=== PATIENT | male | born 1955 | race Caucasian/White ===

== ENCOUNTER 2021-01-09 09:29 | Outpatient (REF) | payer OTHER, SELFPAY ==
[2021-01-09 11:45] LABS: Alanine Aminotransferase 35 U/L (0-40); Albumin Level 4.2 g/dL (3.5-5.0); Alkaline Phosphatase 74 U/L (39-117); Anion Gap 12 (12-20); Aspartate Amino Transferase 24 U/L (5-37); Bilirubin Total 0.6 mg/dL (0.0-1.0); Blood Urea Nitrogen 18 mg/dL (9-16); Calcium 9.4 mg/dL (8.4-10.2); Carbon Dioxide 31 mmol/L (22-29); Chloride 103 mmol/L (96-108); Cholesterol 148 mg/dL; Estimated Glomerular Filt Rate > 60; Glucose Fasting 94 mg/dL (60-99); HDL Cholesterol 56 mg/dL; LDL Cholesterol Calculated 70 mg/dl; Potassium 4.5 mmol/L (3.3-5.1); Sodium 141 mmol/L (135-145); Total Protein 6.8 g/dL (6.5-8.0); Triglycerides 112 mg/dL
[2021-01-09 12:10] LABS: Prostate Specific Antigen Scr 2.22 ng/mL (<0.05-4.0); TSH reflex Free T4 2.76 uIU/mL (0.32-4.0)
== END 2021-01-09 09:30 | disposition home or self-care (01) ==
LOC: HO.HMGCLDS 09:29
PROVIDERS: PCP Nurse Practitioner Family; Visit Provider Nurse Practitioner Family
DX: Z00.00 Encounter for general adult medical examination without abnormal findings (principal); Z12.5 Encounter for screening for malignant neoplasm of prostate
CPT/HCPCS: 36415; 80053; 80061; 84153; 84443

== ENCOUNTER 2023-05-26 08:16 | Outpatient (REF) | payer MEDICARE, SELFPAY ==
[2023-05-26 11:27] LABS: MANUAL DIFF FLAG NO
[2023-05-26 11:35] LABS: Appearance Urine Clear; Color Urine Yellow; Glucose Urine UA Negative (Negative); Leukocyte Esterase Urine Negative (Negative); Nitrite Urine Negative (Negative); PH 5.5 (5.0-9.0); Urine Blood Negative (Negative); Urine Ketones Negative (Negative); Urine Protein Negative (Neg-Trace)
[2023-05-26 11:36] LABS: Basophils Absolute Auto 0.1 X10*3/uL (0.0-0.2); Basophils Percent Auto 1.4 % (0-2); Eosinophils Absolute Auto 0.1 X10*3/uL (0.0-0.4); Eosinophils Percent Auto 1.2 % (0-4); Hematocrit 44.3 % (42.0-52.0); Hemoglobin 14.5 g/dl (14.0-18.0); Imm Gran Abs Auto 0.01 X10*3/uL (0.00-0.03); Imm Gran Pct Auto 0.2 % (0.0-0.4); Lymphocytes Absolute Auto 1.2 X10*3/uL (1.2-4.9); Lymphocytes Percent Auto 28.6 % (20-40); Mean Corpuscular HGB Conc 32.7 g/dl (31.0-36.0); Mean Corpuscular Hemoglobin 31.2 pg (27.0-33.0); Mean Corpuscular Volume 95.3 fL (80.0-98.0); Mean Platelet Volume 10.4 fL (9.4-12.4); Monocytes Absolute Auto 0.4 X10*3/uL (0.1-1.2); Neutrophils Absolute Auto 2.5 x10*3/uL (2.0-8.3); Neutrophils Percent Auto 58.6 % (45-73); Platelet Count 292 X10*3/uL (160-400); Red Blood Count 4.65 X10*6/uL (4.60-5.80); White Blood Count 4.3 X10*3/uL (4.8-10.8)
[2023-05-26 12:05] LABS: Alanine Aminotransferase 29 U/L (0-40); Alkaline Phosphatase 74 U/L (39-117); Anion Gap 13 (12-20); Aspartate Amino Transferase 23 U/L (5-37); Bilirubin Total 0.8 mg/dL (0.0-1.0); Blood Urea Nitrogen 20 mg/dL (9-16); Calcium 9.6 mg/dL (8.4-10.2); Carbon Dioxide 24 mmol/L (22-29); Chloride 107 mmol/L (96-108); Cholesterol 138 mg/dL; Estimated Glomerular Filt Rate > 60; Glucose Fasting 111 mg/dL (60-99); HDL Cholesterol 57 mg/dL; LDL Cholesterol Calculated 68 mg/dl; Potassium 4.4 mmol/L (3.3-5.1); Sodium 140 mmol/L (135-145); Total Protein 6.8 g/dL (6.5-8.0); Triglycerides 66 mg/dL
[2023-05-26 12:21] LABS: Prostate Specific Antigen Scr 3.34 ng/mL (<0.05-4.0)
[2023-05-26 12:29] LABS: TSH reflex Free T4 2.86 uIU/mL (0.32-4.0)
== END 2023-05-26 08:17 | disposition home or self-care (01) ==
LOC: HO.HMGCLDS 08:16
PROVIDERS: PCP Nurse Practitioner Family; Visit Provider Nurse Practitioner Family
DX: Z12.5 Encounter for screening for malignant neoplasm of prostate (principal); E78.5 Hyperlipidemia, unspecified
CPT/HCPCS: 36415; 80053; 80061; 81003; 84153; 84443; 85025

== ENCOUNTER 2023-06-10 11:28 | Outpatient (AMB) | payer MEDICARE, SELFPAY ==
--- NOTE | 2023-06-10 11:36 | MHC.PC.OV ---
Vital Signs 06/10/23 11:37 Height 5 ft 10 in Weight 211 lb 4 oz BMI 30.3 BP 124/80 Blood Pressure Location Rt brachial Position Sitting Pulse 62 Pulse Source Pulse Oximeter Pulse Oximetry (%) 96 Oxygen Delivery Method Room Air Intake Visit Reasons: Follow up Allergies cats Allergy (Unknown, Uncoded 06/10/23 11:39) Unknown Medication List - Last Reconciled 06/10/23 by GWEN Nguyen atorvastatin 80 mg PO DAILY 90 days Tobacco use date assessed: 06/10/23 Fall risk assessment: No Falls in past year Last assessed Fall Risk: 06/10/23 Dental Screening Dental Screen Date: 06/10/23 Did you have a dental visit in the last 12 months?: Yes Did you have a dental problem in the last 6 months where you did not have access to dental care?: No Was dental information given to patient?: Patient has dentist HPI Follow up HPI Details Dyslipidemia: On atorvastatin 80mg. Labs were drawn recently and do not look bad. Denies chest pain, shortness of breath, and dizziness. Pt's PSA has gone up in the last 2 years. Denies any dribbling with urination, weak stream, and incomplete bladder emptying. Slight leukopenia on recent cbc, will repeat [facility] Medical History (Updated 06/10/23 @ 12:02 by GWEN Nguyen) Actinic keratitis Basal cell carcinoma (BCC) Dyslipidemia TIA (transient ischemic attack) Surgical History History of knee replacement procedure of right knee Family History Father No problems noted. Mother HTN (hypertension) Brother No problems noted. Sister No problems noted. Daughter No problems noted. Daughter No problems noted. Social History Housing: Condominium Alcohol intake: current Alcohol intake frequency: a few times a month Patient Tobacco Use Status: Never used Tobacco e-Cigarette/Vaping Use: Never Used Second Hand Smoke Exposure: No service: No Current occupational status: retired Current occupational exposures/hazards: No Cognitive needs: No Hearing needs: No Vision needs: No Review of Systems Const Reports as per HPI Physical exam (Primary Care) Vital Signs: Last Vital Signs Pulse 62 06/10/23 11:37 BP 124/80 06/10/23 11:37 Pulse Ox 96 06/10/23 11:37 Oxygen Delivery Method Room Air 06/10/23 11:37 BMI result Body Mass Index 30.3 Tobacco/Smoking Status: Tobacco use Status Tobacco use date assessed 06/10/23 06/10/23 11:42 Patient Tobacco Use Status Never used Tobacco 06/10/23 11:42 e-Cigarette/Vaping Use Never Used 06/10/23 11:42 Const General: cooperative Orientation/consciousness: patient oriented x3 Resp Effort & Inspection: normal respiratory effort Auscultation: clear to auscultation bilaterally Cardio Rate: regular rate Rhythm: regular rhythm Heart sounds: S1 normal heart sound present and S2 normal heart sound present Neuro General: patient oriented x3 Extrem Right lower extremity: no edema Left lower extremity: no edema Psych Appearance: grossly normal Mental Status: mental status grossly normal Speech and movement: Normal speech and movement present Affect: normal affect Attitude: cooperative Thought process: Normal thought process present Thought content: Normal thought content present Insight: Good insight present (Psych) Judgement: Good judgement present (Psych) Assessment and Plan Assessment & Plan (1) Leukopenia: Code(s): D72.819 - Decreased white blood cell count, unspecified (2) Dyslipidemia: Code(s): E78.5 - Hyperlipidemia, unspecified Plan The patient agreed to the use of a biomedical technician for this encounter. Scribed for GWEN Wilks by Sabiha Lundberg biomedical technician, on 06/10/2023 at 11:50 EST. Orders: Orders Complete Blood Count Auto Diff Today D72.819 - Decreased white blood cell count, unspecified Coding Level of Care Code Est Pt Level 3 (44630) Diagnoses Leukopenia D72.819 Dyslipidemia E78.5
[2023-06-10 11:37] VITALS: BP 124/80; PULSE 62; O2SAT 96; BMI 30.3
== END 2023-06-10 12:26 | disposition home or self-care (01) ==
PROVIDERS: PCP Nurse Practitioner Family; Visit Provider Nurse Practitioner Family
DX: D72.819 Decreased white blood cell count, unspecified (principal); E78.5 Hyperlipidemia, unspecified
CPT/HCPCS: 99213

== ENCOUNTER 2023-10-19 10:14 | Outpatient (REF) | payer MEDICARE, SELFPAY ==
[2023-10-19 13:13] LABS: MANUAL DIFF FLAG NO
[2023-10-19 13:30] LABS: Basophils Percent Auto 0.7 % (0-2); Eosinophils Percent Auto 0.9 % (0-4); Hematocrit 41.9 % (42.0-52.0); Hemoglobin 13.9 g/dl (14.0-18.0); Imm Gran Abs Auto 0.01 X10*3/uL (0.00-0.03); Imm Gran Pct Auto 0.2 % (0.0-0.4); Lymphocytes Absolute Auto 1.3 X10*3/uL (1.2-4.9); Lymphocytes Percent Auto 27.6 % (20-40); Mean Corpuscular HGB Conc 33.2 g/dl (31.0-36.0); Mean Corpuscular Hemoglobin 31.2 pg (27.0-33.0); Mean Corpuscular Volume 94.2 fL (80.0-98.0); Mean Platelet Volume 9.9 fL (9.4-12.4); Monocytes Absolute Auto 0.6 X10*3/uL (0.1-1.2); Monocytes Percent Auto 12.3 % (2-11); Neutrophils Absolute Auto 2.7 x10*3/uL (2.0-8.3); Neutrophils Percent Auto 58.3 % (45-73); Platelet Count 278 X10*3/uL (160-400); Red Blood Count 4.45 X10*6/uL (4.60-5.80); White Blood Count 4.6 X10*3/uL (4.8-10.8)
== END 2023-10-19 10:15 | disposition home or self-care (01) ==
LOC: HO.HMGCLDS 10:14
PROVIDERS: PCP Nurse Practitioner Family; Visit Provider Nurse Practitioner Family
DX: D72.819 Decreased white blood cell count, unspecified (principal)
CPT/HCPCS: 36415; 85025

== ENCOUNTER 2024-01-21 11:49 | Outpatient (REF) | payer MEDICARE, SELFPAY ==
[2024-01-21 13:17] LABS: MANUAL DIFF FLAG NO
[2024-01-21 13:23] LABS: Basophils Percent Auto 0.8 % (0-2); Eosinophils Percent Auto 0.8 % (0-4); Hematocrit 43.6 % (42.0-52.0); Hemoglobin 14.6 g/dl (14.0-18.0); Lymphocytes Absolute Auto 1.3 X10*3/uL (1.2-4.9); Lymphocytes Percent Auto 27.9 % (20-40); Mean Corpuscular HGB Conc 33.5 g/dl (31.0-36.0); Mean Corpuscular Hemoglobin 31.3 pg (27.0-33.0); Mean Corpuscular Volume 93.4 fL (80.0-98.0); Mean Platelet Volume 9.8 fL (9.4-12.4); Monocytes Absolute Auto 0.5 X10*3/uL (0.1-1.2); Monocytes Percent Auto 10.2 % (2-11); Neutrophils Absolute Auto 2.9 x10*3/uL (2.0-8.3); Neutrophils Percent Auto 60.3 % (45-73); Platelet Count 282 X10*3/uL (160-400); Red Blood Count 4.67 X10*6/uL (4.60-5.80); Red Cell Distribution Width 12.3 % (11.0-16.0); White Blood Count 4.8 X10*3/uL (4.8-10.8)
[2024-01-21 13:50] LABS: Alanine Aminotransferase 24 U/L (0-40); Albumin Level 4.1 g/dL (3.5-5.0); Alkaline Phosphatase 79 U/L (39-117); Anion Gap 11 (12-20); Aspartate Amino Transferase 18 U/L (5-37); Bilirubin Total 0.7 mg/dL (0.0-1.0); Blood Urea Nitrogen 20 mg/dL (9-16); Calcium 9.8 mg/dL (8.4-10.2); Carbon Dioxide 28 mmol/L (22-29); Chloride 104 mmol/L (96-108); Estimated Glomerular Filt Rate > 60; Glucose Random 90 mg/dL (60-115); Iron 132 mcg/dL (45-160); Percent Iron Saturation 42 % (15-50); Potassium 4.4 mmol/L (3.3-5.1); Sodium 139 mmol/L (135-145); Total Iron Binding Capacity 314 mcg/dL (228-428); Total Protein 7.1 g/dL (6.5-8.0); Unsaturated Iron Binding 182 ug/dL
[2024-01-21 14:06] LABS: Folate 7.2 ng/mL (> or = 4.0); Vitamin B12 444 pg/mL (200-900)
[2024-01-21 14:07] LABS: Ferritin 155 ng/mL (20-250)
[2024-01-27 11:54] LABS: Hematocrit 42.8 % (38.5-50.0); Hemoglobin 14.3 g/dL (13.2-17.1); MCH 31.2 pg (27.0-33.0); MCV 93.4 fL (80.0-100.0); RBC 4.58 Million/uL (4.20-5.80); RDW 12.3 % (11.0-15.0)
== END 2024-01-21 11:50 | disposition home or self-care (01) ==
LOC: HO.HMGCLDS 11:49
PROVIDERS: PCP Nurse Practitioner Family; Visit Provider Nurse Practitioner Family
DX: D72.819 Decreased white blood cell count, unspecified (principal); D64.9 Anemia, unspecified
CPT/HCPCS: 36415; 80053; 82607; 82728; 82746; 83020; 83540; 85014; 85018; 85025; 85041

== ENCOUNTER 2024-04-05 10:43 | Outpatient (REF) | payer MEDICARE, SELFPAY ==
[2024-04-05 14:05] LABS: Prostate Specific Antigen Scr 4.51 ng/mL (<0.05-4.0)
== END 2024-04-05 10:44 | disposition home or self-care (01) ==
LOC: HO.HMGCLDS 10:43
PROVIDERS: PCP Nurse Practitioner Family; Visit Provider Nurse Practitioner Family
DX: Z12.5 Encounter for screening for malignant neoplasm of prostate (principal)
CPT/HCPCS: 36415; 84153

== ENCOUNTER 2024-05-30 09:41 | Outpatient (AMB) | payer MEDICARE, SELFPAY ==
--- NOTE | 2024-05-30 10:03 | A.OFFVIS_ITS ---
Intake Visit Reasons: elevated PSA Intake Note: New Patient presents today for initial visit to establish treatment for : Elevated PSA Urology Medications: none Allergies to Antibiotic: none Blood Thinner: none Portable Trackman Required: No Accompanied by: Self / Same As Patient Allergies cats Allergy (Unknown, Uncoded 05/30/24 14:22) Unknown Medication List - Last Reconciled 05/30/24 by VIVIAN Russell-SARINA atorvastatin 80 mg PO DAILY 90 days HPI Comments Details: Amado is a pleasant 69-year-old male patient of Dr. Haas. He has a past medical history of basal cell carcinoma, actinic keratosis, TIA, and dyslipidemia. He presents to the office today as a new patient for an elevated PSA. In discussion with the patient today he reports to be doing and feeling well. He reports having followed up with his PCP at which time PSA was noted to be elevated at which time urology referral was submitted for further assessment evaluation. He currently denies any bothersome urinary issues or concerns. He does report episodes of nocturia up to 2 times per night he otherwise denies urinary urgency, urinary frequency, incontinence, nocturia, hematuria, dysuria, foul smelling urine, changes to urinary stream, flank pain, fever, and or chills. He is happy with his current voiding parameters. In office urinalysis results were reviewed with the patient today. When asked he denies any family history of prostate cancer. He reports having had CLEMENTE previously that noted no abnormalities. In review of patient's chart it appears PSAs are as follows: PSAs: 07/18 2.2, 01/20 2.2, 05/22 3.3, 04/22 4.5 Discussed at length potential causes of elevated PSA. Discussed obtaining retro peritoneal ultrasound for further assessment evaluation. Discussed redraw of PSA with no sex the night before, no caffeine morning of, no heavy lifting 1-2 days prior. He otherwise offers no other issues or concerns at this time. [facility] Medical History Basal cell carcinoma (BCC) Actinic keratitis TIA (transient ischemic attack) Dyslipidemia Surgical History History of knee replacement procedure of right knee Family History Father No problems noted. Mother HTN (hypertension) Brother No problems noted. Sister No problems noted. Daughter No problems noted. Daughter No problems noted. Social History Housing: Condominium Alcohol intake: current Alcohol intake frequency: a few times a month Patient Tobacco Use Status: Never used Tobacco e-Cigarette/Vaping Use: Never Used Second Hand Smoke Exposure: No service: No Current occupational status: retired Current occupational exposures/hazards: No Cognitive needs: No Hearing needs: No Vision needs: No Review of Systems Const Reports no additional complaints Eyes Reports no additional complaints ENT Reports no additional complaints Card Reports as per HPI Resp Reports no additional complaints GI Reports no additional complaints Reports as per HPI Musc Reports no additional complaints Skin/Breast Reports as per HPI Neuro Reports as per HPI Psych Reports no additional complaints Endo Reports no additional complaints Edwin/Lymph Reports no additional complaints Aller/Immun Reports no additional complaints Physical Exam Const General: cooperative, healthy appearing, comfortable, no acute distress, well developed, alert and awake Orientation/consciousness: patient oriented x3 Limitations: no limitations HEENT Head: Yes normal to inspection, Yes normocephalic and Yes atraumatic Ears: hearing grossly normal bilaterally Eyes General: appearance normal, both eyes and all related structures Neck Neck: Yes normal visual inspection and Yes trachea midline Chest Chest palpation & inspection: normal inspection of the chest Resp Effort & Inspection: normal respiratory effort and able to speak in complete sentences Cardio Rate: regular rate GI Inspection: Yes normal to inspection General: Yes no CVA tenderness Back/Spine/Pelvis Back: no CVA tenderness Skin General skin exam: no rashes or lesions noted Neuro General: patient oriented x3 Extrem General: Yes normal to inspection Psych Appearance: grossly normal and well kempt Mental Status: mental status grossly normal Speech and movement: Normal speech and movement present and Clear speech present Affect: normal affect Attitude: cooperative Thought process: Normal thought process present Thought content: Normal thought content present Insight: Fair insight present (Psych) Judgement: Fair judgement present (Psych) Results AMB Urinalysis, Automated UA Leukoctes 0 Irasema/uL Last Edit by Roselia Kramer on 05/30/24 10:22 UA Nitrite Negative Last Edit by Roselia Kramer on 05/30/24 10:22 UA Urobilinogen 0.2 mg/dL Last Edit by Roselia Sheldonmaxwell on 05/30/24 10:22 UA Protein 0 mg/dL Last Edit by Charlesren Monalisamaxwell on 05/30/24 10:22 UA pH 6.0 Last Edit by Roselia Sheldonmaxwell on 05/30/24 10:22 UA Blood 25 Duke/uL Last Edit by Roselia Monalisamaxwell on 05/30/24 10:22 UA Specific [place] 1.020 Last Edit by Roselia Sheldonmaxwell on 05/30/24 10:22 UA Ketone Negative Last Edit by Sailajadavid Monalisamaxwell on 05/30/24 10:22 UA Bilirubin 0 mg/dL Last Edit by Charlesren Monalisamaxwell on 05/30/24 10:22 UA Glucose 0 mg/dL Last Edit by Roselia Monalisamaxwell on 05/30/24 10:22 Results Reviewed Results Reviewed: Laboratory Last Values Urine pH (Auto) 6.0 05/30/24 10:12 Specific [place] (Auto) 1.020 05/30/24 10:12 Urine Protein (Auto) 0 mg/dL 05/30/24 10:12 Glucose (UA)(Auto) 0 mg/dL 05/30/24 10:12 Urine Ketones (Auto) Negative 05/30/24 10:12 Urine Blood (Auto) 25 Duke/uL 05/30/24 10:12 Urine Nitrite (Auto) Negative 05/30/24 10:12 Urine Bilirubin (Auto) 0 mg/dL 05/30/24 10:12 Urine Urobilinogen (Auto) 0.2 mg/dL 05/30/24 10:12 Leukocyte Esterase (Auto) 0 Irasema/uL 05/30/24 10:12 Assessment & Plan Assessment & Plan (1) Elevated PSA: Code(s): R97.20 - Elevated prostate specific antigen [PSA] Category: Medical Plan In office urinalysis results reviewed with the patient today; as noted above. Will obtain retroperitoneal ultrasound for further assessment evaluation. Will obtain redraw of PSA with no sex the night before, no caffeine morning of, no heavy lifting 1-2 days prior. Patient currently denies any bothersome urinary issues or concerns. He reports be happy with current voiding parameters. Discussed at length potential causes of elevated PSA as well as further further workup. Follow-up in 1-3 months with imaging and labs to be completed prior; or sooner with any issues, concerns, and or questions. Orders: Orders AMB Urinalysis Automated Today Z13.9 - Encounter for screening, unspecified US retroperitoneal comp Today R35.1 - Nocturia PSA,Total (Free>4and<10) Today R97.20 - Elevated prostate specific antigen [PSA] Patient Instructions: The patient had an opportunity to ask questions regarding the treatment plan. All questions were answered. Physical exam, labs, and imaging were discussed and reviewed in detail. As well as risks, benefits, and discussion of treatment choices. No major barriers to understanding were identified. The patient expressed understanding and agreement with the above treatment plan. The patient was made aware they should contact our office by phone for worsening of their current condition, the appearance of new symptoms, or with any questions or concerns. Compliance is encouraged with any medications and follow up testing that is ordered. It is a privilege to be allowed the opportunity to participate in? your urological care.? Again, if you have any questions or concerns If you have any questions or concerns please do not hesitate to contact me. The office is [phone]. This note is constructed using voice recognition software. While every effort has been made to ensure accuracy medical front desk specialist errors may have been included. Yours sincerely, GWEN Russell Coding Level of Care Code New Pt Level 3 (77693) Diagnoses Elevated PSA R97.20
== END 2024-05-30 10:34 | disposition home or self-care (01) ==
PROVIDERS: PCP Nurse Practitioner Family; Visit Provider Nurse Practitioner Family
DX: R97.20 Elevated prostate specific antigen [PSA] (principal); Z13.9 Encounter for screening, unspecified
CPT/HCPCS: 99203

== ENCOUNTER → 2024-05-30 09:41 | Outpatient (BNVA) | payer MEDICARE, SELFPAY | PROVIDERS: PCP Nurse Practitioner Family; Visit Provider Nurse Practitioner Family | DX: R97.20 Elevated prostate specific antigen [PSA] (principal); R35.1 Nocturia | CPT/HCPCS: 81003; 99202 ==

== ENCOUNTER 2024-07-04 11:24 | Outpatient (REF) | payer MEDICARE, SELFPAY ==
--- NOTE | ~2024-07-04 | US_ITS ---
EXAMINATION: US RETROPERITONEAL COMPLETE (RENAL) CLINICAL INFORMATION: Nocturia. COMPARISON: None available. TECHNIQUE: Real-time imaging of the kidneys and bladder. FINDINGS: RIGHT KIDNEY: 12.0 x 4.8 x 4.8 cm (SAG x AP x TRV). The kidney is normal in size, contour, and echogenicity. Renal cortical thickness is normal. No calculi or focal parenchymal lesions. No hydronephrosis. LEFT KIDNEY: 12.2 x 5.1 x 5.1 cm (SAG x AP x TRV). The kidney is normal in size, contour, and echogenicity. Renal cortical thickness is normal. No calculi or focal parenchymal lesions. No hydronephrosis. BLADDER: Well distended and normal. Bilateral ureteral jets are demonstrated. Prevoid bladder volume is 223 mL. Postvoid bladder volume is 16.5 mL. PROSTATE GLAND: 3.5 x 3.6 x 3.0 cm, volume 19 mL. US/US retroperitoneal comp IMPRESSION: Unremarkable sonographic imaging of the kidneys and bladder. Specifically, no renal calculi or hydronephrosis of either kidney. Electronically signed by: Mychal Torres MD 07/30/2024 09:20 AM EDT
== END 2024-07-04 11:25 | disposition home or self-care (01) ==
LOC: HO.HMGCX 11:24
PROVIDERS: PCP Nurse Practitioner Family; Visit Provider Nurse Practitioner Family
DX: R35.1 Nocturia (principal)
CPT/HCPCS: 76770

== ENCOUNTER 2024-07-14 10:27 | Outpatient (REF) | payer MEDICARE, SELFPAY ==
[2024-07-14 13:53] LABS: PSA,Total (Free>4and<10) 5.49 ng/mL (0.00-4.00)
[2024-07-15 10:38] LABS: Free Prostate Spec Ag 0.3 ng/mL; Percent Free Prostate Spec Ag 6 % (calc) (>25); Prostate Specific Ag Total 5.1 ng/mL (< OR = 4.0)
== END 2024-07-14 10:28 | disposition home or self-care (01) ==
LOC: HO.HMGCLDS 10:27
PROVIDERS: PCP Nurse Practitioner Family; Visit Provider Nurse Practitioner Family
DX: R97.20 Elevated prostate specific antigen [PSA] (principal); Z12.5 Encounter for screening for malignant neoplasm of prostate
CPT/HCPCS: 36415; 84153; 84154

== ENCOUNTER 2024-07-29 13:32 | Outpatient (AMB) | payer MEDICARE, SELFPAY ==
--- NOTE | 2024-07-29 13:34 | MHC.OFFVIS ---
Intake Visit Reasons: 2m/US/PSA Intake Note: Patient presents today for follow up visit on: Elevated PSA, ultrasound and lab results Imaging Completed: 07/04/24 PSA: 5.49 Urology Medications: none Allergies to Antibiotic: none Blood Thinner: none Supervisor Refining Required: No Accompanied by: Self / Same As Patient Allergies cats Allergy (Unknown, Uncoded 07/29/24 14:09) Unknown Medication List - Last Reconciled 07/29/24 by VIVIAN Russell-SARINA atorvastatin 80 mg PO DAILY 90 days HPI Comments Details: Amado is a pleasant 69-year-old male patient of Dr. Haas. He has a past medical history of basal cell carcinoma, actinic keratosis, TIA, and dyslipidemia. He presents to the office today for follow-up of his elevated PSA. Of note, patient was seen approximately 6 weeks ago at which time a redraw of PSA was ordered as well as a retroperitoneal ultrasound. These results reviewed with the patient today. Bilateral kidneys with no calculi, lesions, and or hydronephrosis. The bladder is well distended and normal. Bladder jets are demonstrated. Pre void bladder volume is proximally 220 mL. Postvoid bladder volume is approximately 15 mL. The prostate measures approximately 20 mL. PSAs are as follows: PSAs: 07/18 2.2, 01/20 2.2, 05/22 3.3, 04/22 4.5, 07/23 5.5 % free psa 6% PCPT risk calculator results reviewed with the patient today. 7% chance that prostate biopsy is negative for cancer, 53% chance of low-grade prostate cancer, and 40% chance of high-grade prostate cancer. We discussed at length potential causes of elevated PSA. We discussed further treatment options to include MRI of the prostate verses prostate biopsy verses surveillance monitoring. Risks and benefits of these interventions were discussed at length. He currently denies any bothersome urinary issues or concerns. He does report episodes of nocturia up to 2 times per night he otherwise denies urinary urgency, urinary frequency, incontinence, nocturia, hematuria, dysuria, foul smelling urine, changes to urinary stream, flank pain, fever, and or chills. He is happy with his current voiding parameters. In office urinalysis results were reviewed with the patient today. When asked he denies any family history of prostate cancer. He reports having had CLEMENTE previously that noted no abnormalities. He otherwise offers no other issues or concerns at this time [facility] Medical History Basal cell carcinoma (BCC) Actinic keratitis TIA (transient ischemic attack) Dyslipidemia Surgical History History of knee replacement procedure of right knee Family History Father No problems noted. Mother HTN (hypertension) Brother No problems noted. Sister No problems noted. Daughter No problems noted. Daughter No problems noted. Social History Housing: Condominium Alcohol intake: current Alcohol intake frequency: a few times a month Patient Tobacco Use Status: Never used Tobacco e-Cigarette/Vaping Use: Never Used Second Hand Smoke Exposure: No service: No Current occupational status: retired Current occupational exposures/hazards: No Cognitive needs: No Hearing needs: No Vision needs: No Review of Systems Const Reports no additional complaints Eyes Reports no additional complaints ENT Reports no additional complaints Card Reports as per HPI Resp Reports no additional complaints GI Reports no additional complaints Reports as per HPI Musc Reports no additional complaints Skin/Breast Reports as per HPI Neuro Reports as per HPI Psych Reports no additional complaints Endo Reports no additional complaints Edwin/Lymph Reports no additional complaints Aller/Immun Reports no additional complaints Physical Exam Const General: cooperative, healthy appearing, comfortable, no acute distress, well developed, alert and awake Orientation/consciousness: patient oriented x3 Limitations: no limitations HEENT Head: Yes normal to inspection, Yes normocephalic and Yes atraumatic Ears: hearing grossly normal bilaterally Eyes General: appearance normal, both eyes and all related structures Neck Neck: Yes normal visual inspection and Yes trachea midline Chest Chest palpation & inspection: normal inspection of the chest Resp Effort & Inspection: normal respiratory effort and able to speak in complete sentences Cardio Rate: regular rate GI Inspection: Yes normal to inspection General: Yes no CVA tenderness Back/Spine/Pelvis Back: no CVA tenderness Skin General skin exam: no rashes or lesions noted Neuro General: patient oriented x3 Extrem General: Yes normal to inspection Psych Appearance: grossly normal and well kempt Mental Status: mental status grossly normal Speech and movement: Normal speech and movement present and Clear speech present Affect: normal affect Attitude: cooperative Thought process: Normal thought process present Thought content: Normal thought content present Insight: Fair insight present (Psych) Judgement: Fair judgement present (Psych) Results AMB Urinalysis, Automated UA Leukoctes 0 Irasema/uL Last Edit by [employer] on 07/29/24 13:45 UA Nitrite Last Edit by [employer] on 07/29/24 13:45 UA Urobilinogen 0.2 mg/dL Last Edit by [employer] on 07/29/24 13:45 UA Protein 0 mg/dL Last Edit by [employer] on 07/29/24 13:45 UA pH 6.0 Last Edit by [employer] on 07/29/24 13:45 UA Blood 25 Duke/uL Last Edit by [employer] on 07/29/24 13:45 UA Specific [place] 1.020 Last Edit by [employer] on 07/29/24 13:45 UA Ketone Last Edit by [employer] on 07/29/24 13:45 UA Bilirubin 0 mg/dL Last Edit by [employer] on 07/29/24 13:45 UA Glucose 0 mg/dL Last Edit by [employer] on 07/29/24 13:45 Results Reviewed Results Reviewed: Laboratory Last Values Urine pH (Auto) 6.0 07/29/24 13:37 Specific [place] (Auto) 1.020 07/29/24 13:37 Urine Protein (Auto) 0 mg/dL 07/29/24 13:37 Glucose (UA)(Auto) 0 mg/dL 07/29/24 13:37 Urine Blood (Auto) 25 Duke/uL 07/29/24 13:37 Urine Bilirubin (Auto) 0 mg/dL 07/29/24 13:37 Urine Urobilinogen (Auto) 0.2 mg/dL 07/29/24 13:37 Leukocyte Esterase (Auto) 0 Irasema/uL 07/29/24 13:37 Date of Service: 07/04/24 EXAMINATION: US RETROPERITONEAL COMPLETE (RENAL) FINDINGS: RIGHT KIDNEY: 12.0 x 4.8 x 4.8 cm (SAG x AP x TRV). The kidney is normal in size, contour, and echogenicity. Renal cortical thickness is normal. No calculi or focal parenchymal lesions. No hydronephrosis. LEFT KIDNEY: 12.2 x 5.1 x 5.1 cm (SAG x AP x TRV). The kidney is normal in size, contour, and echogenicity. Renal cortical thickness is normal. No calculi or focal parenchymal lesions. No hydronephrosis. BLADDER: Well distended and normal. Bilateral ureteral jets are demonstrated. Prevoid bladder volume is 223 mL. Postvoid bladder volume is 16.5 mL. PROSTATE GLAND: 3.5 x 3.6 x 3.0 cm, volume 19 mL. IMPRESSION: Unremarkable sonographic imaging of the kidneys and bladder. Specifically, no renal calculi or hydronephrosis of either kidney. Assessment & Plan Assessment & Plan (1) Nocturia: Code(s): R35.1 - Nocturia Category: Medical (2) Elevated PSA: Code(s): R97.20 - Elevated prostate specific antigen [PSA] Category: Medical Plan: Plan Risks and benefits regarding trans rectal ultrasound with prostate biopsy were discussed.? Options of continued surveillance, no treatment and biopsy were offered. The risks include but are not limited to, urinary tract infection, sepsis, difficulty urinating, bleeding into the rectum or bladder that requires intervention and transfusion,and failure to diagnose prostate cancer. The patient understands the options and the risks involved. They wish to proceed. Printed information was provided to ensure he remains off anticoagulation for the appropriate length of time. He may require cardiology or PCP clearance.? An antibiotic will be administered prior to, and following the procedure Plan In office urinalysis results reviewed with the patient today; as noted above. Recent PSA results reviewed with the patient today; as noted above. Recent retroperitoneal ultrasound results reviewed with the patient today; as noted above. Discussed at length potential causes of elevated PSA as well as further treatment options risks and benefits of these interventions were discussed. Prescription provided for antibiotic therapy discussed importance of taking day before, day of, and day after prostate procedure. He denies any bothersome urinary issues or concerns. He reports be happy with current voiding parameters. Will schedule for prostate procedure as discussed. Follow-up per doctor's orders; or sooner with any issues, concerns, and or questions. Orders: Orders AMB Urinalysis Automated 07/29/24 Z13.9 - Encounter for screening, unspecified Medications: New levofloxacin take 1 tablet day before procedure, 1 tablet day of procedure and 1 tablet day after procedure 500 mg PO daily 3 days 3 tabs 0RF Patient Instructions: The patient had an opportunity to ask questions regarding the treatment plan. All questions were answered. Physical exam, labs, and imaging were discussed and reviewed in detail. As well as risks, benefits, and discussion of treatment choices. No major barriers to understanding were identified. The patient expressed understanding and agreement with the above treatment plan. The patient was made aware they should contact our office by phone for worsening of their current condition, the appearance of new symptoms, or with any questions or concerns. Compliance is encouraged with any medications and follow up testing that is ordered. It is a privilege to be allowed the opportunity to participate in? your urological care.? Again, if you have any questions or concerns If you have any questions or concerns please do not hesitate to contact me. The office is [phone]. This note is constructed using voice recognition software. While every effort has been made to ensure accuracy clinical interviewer errors may have been included. Yours sincerely, GWEN Russell Coding Level of Care Code Est Pt Level 4 (22921) Diagnoses Nocturia R35.1 Elevated PSA R97.20
== END 2024-07-29 14:13 | disposition home or self-care (01) ==
PROVIDERS: PCP Nurse Practitioner Family; Visit Provider Nurse Practitioner Family
DX: R35.1 Nocturia (principal); R97.20 Elevated prostate specific antigen [PSA]
CPT/HCPCS: 99214

== ENCOUNTER → 2024-07-29 13:32 | Outpatient (BNVA) | payer MEDICARE, SELFPAY | PROVIDERS: PCP Nurse Practitioner Family; Visit Provider Nurse Practitioner Family | DX: R97.20 Elevated prostate specific antigen [PSA] (principal); R35.1 Nocturia | CPT/HCPCS: 81003; 99212 ==

== ENCOUNTER 2024-08-08 11:54 | Outpatient (AMB) | payer MEDICARE, SELFPAY ==
--- NOTE | 2024-08-08 12:10 | AM.OFFVISNUR ---
Intake Visit Reasons: tdap Intake Note: Pt arrived for Tdap vaccine Allergies cats Allergy (Unknown, Uncoded 07/29/24 14:09) Unknown Assessment & Plan Assessment & Plan Orders: Orders TDaP Immunization Today Z23 - Encounter for immunization Medications: New Boostrix Tdap (diphth,pertus(acell),tetanus) 0.5 mL IM ONCE 0.5 mL 0RF NS Z23 - Encounter for immunization
== END 2024-08-08 12:51 | disposition home or self-care (01) ==
LOC: HO.HMGC 11:54
PROVIDERS: PCP Nurse Practitioner Family; Visit Provider Nurse Practitioner Family
DX: Z23 Encounter for immunization (principal)
CPT/HCPCS: 90471; 90715

== ENCOUNTER 2024-08-25 07:31 | Outpatient (REF) | payer MEDICARE, SELFPAY ==
[2024-08-25] MEDS: Lidocaine HCl 1 % MPF 5 ML VIAL 10 ML SUBCUT (08:43)
--- NOTE | 2024-08-25 08:48 | P.OP_ITS ---
Operative Note Operative Note Date of Service: 08/25/24 Narrative: Preoperative diagnosis: Elevated PSA Postoperative diagnosis: Elevated PSA 5.1 free 6% Procedure: 1. transrectal ultrasound measurement of prostate 2. transrectal ultrasound-guided pudendal nerve block 3. transrectal ultrasound-guided prostate biopsy 12 core Surgeon: Dr. Héctor Dominguez Anesthetic: 10cc 1% lidocaine Indications for procedure: Elevated PSA Counselling: Technical aspects, risks and benefits of proposed procedure were discussed in full. All questions have been answered, written consent has been obtained and patient agrees to proceed. Procedure: The patient was brought into the procedure area and placed in a left lateral decubitus position. Patient identity confirmed. Perioperative antibiotics confirmed. Safety pause time out performed. CLEMENTE was performed to dilate rectal sphincter Iodine 10cc with 60 cc gel was placed per rectum to reduce infection risk using a catheter tip syringe. 8 Hz Bernie rectal end-fire ultrasound probe was placed transrectally without difficulty. The prostate was visualized. Seminal vesicles were normal. Prostate margins were clearly demarcated. Bladder was seen superiorly. No cystic structures were noted Calcifications were noted at the surgical margin The prostate was otherwise homogeneous in nature The prostate was measured in 3 dimensions Prostatic Width: 3.7 cm Prostatic Height: 2.9 cm Urethral Length: 4.3 cm Total volume equals : 25 ml An ultrasound-guided pudendal nerve block was performed using a 22 gauge spinal needle in the sagittal plane. 4 cc of 1% lidocaine placed at the junction of each seminal vesicle and 2 cc placed at the apex of the prostate. A 12 core biopsy was performed with 6 cores each side using an 18 gauge prostate biopsy gun. Two cores each were taken at the prostate apex, mid and base on each side. Cores were spaced between lateral and medial aspects. Each core was examined as placed on specimen foam as part of senior quality control inspector to ensure a minimum 1 cm of length and minimal discontinuity. He tolerated the procedure well with minimal rectal bleeding. Blood pressure remained stable following procedure. He was able to ambulate to bathroom after 5 minutes. Printed instructions regarding antibiotic use and common adverse events from the procedure such as low-grade temperature, potential infection and bleeding were given. He understands to call the office or go to an emergency room should any of these events arise. Pathology: 12 core prostate biopsy. CPT code 63215: Transrectal ultrasound; this is a diagnostic test for evaluation of the prostate and surrounding structures, looking for abnormalities or suspicious areas worrisome for cancer CPT code 39022: Biopsy, prostate; needle or punch, single or multiple, any approach CPT code 29697: Ultrasonic guidance for needle placement (eg, biopsy, aspiration, injection, localization device), imaging supervision and interpretation
== END 2024-08-25 07:32 | disposition home or self-care (01) ==
LOC: HO.US 07:31
PROVIDERS: PCP Nurse Practitioner Family; Visit Provider Urology
DX: R97.20 Elevated prostate specific antigen [PSA] (principal)
CPT/HCPCS: 55700; 76942; 88305

== ENCOUNTER → 2024-08-25 07:31 | Outpatient (BNV) | payer MEDICARE, SELFPAY | PROVIDERS: PCP Nurse Practitioner Family; Visit Provider Urology | DX: R97.20 Elevated prostate specific antigen [PSA] (principal) | CPT/HCPCS: 55700; 76872; 76942 ==

== ENCOUNTER 2024-09-09 15:02 | Outpatient (AMB) | payer MEDICARE, SELFPAY ==
--- NOTE | 2024-09-09 15:02 | MHC.OFFVIS ---
Intake Visit Reasons: Prostate bx results Intake Note: Patient is Present for Telephone Follow Up Biopsy Results Urology Med: None Antibiotic Allergy: None Blood Thinner:None Recent PSA: 07/14/2024- Total PSA: 5.49 Rag Production Worker Required: No Allergies cats Allergy (Unknown, Uncoded 09/09/24 15:03) Unknown HPI Comments Details: Amado is a pleasant male. He is a patient of Dr. Haas. He is seen for the following urologic conditions - prostate cancer Telemedicine Evaluation 15 min Consultation [employer] Prostate biopsy performed for elevated PSA Well-tolerated minimum side effects Discussed findings which can be summarized as - low volume grade group 2 organ confined prostate cancer Plan for Prolaris + MRI imaging Prostate cancer - grade group 2, low volume, organ confined 09/22 PSA at diagnosis 5.5 Free 6% TRUS volume 25gm Cancer biopsy does not meet clear threshold for active surveillance based on core number, total volume of positive core However no core more than 50% and all cores were confined to right side Histologic type: Adenocarcinoma, acinar type Griffin score: 3+4=7 (right base lateral 10% and medial 10%, right mid lateral 50%, right apex medial 10%) 3+3=6 (right mid medial 10%, right apex lateral 40%) Number cores positive: 6 Total number of cores: 12 % of tissue involved: 15% of all tissue examined Periprostatic fat inv.: Not identified Seminal vesicle inv.: Not identified Perineural inv.: Present (in 4 of the 6 cores with tumor) LVI: Not identified PFSH Medical History Prostate carcinoma Basal cell carcinoma (BCC) Actinic keratitis TIA (transient ischemic attack) Dyslipidemia Surgical History History of knee replacement procedure of right knee Family History Father No problems noted. Mother HTN (hypertension) Brother No problems noted. Sister No problems noted. Daughter No problems noted. Daughter No problems noted. Social History Housing: Condominium Alcohol intake: current Alcohol intake frequency: a few times a month Patient Tobacco Use Status: Never used Tobacco e-Cigarette/Vaping Use: Never Used Second Hand Smoke Exposure: No service: No Current occupational status: retired Current occupational exposures/hazards: No Cognitive needs: No Hearing needs: No Vision needs: No Review of Systems Const All systems reviewed & are unremarkable except as noted in HPI and below Reports no additional complaints Resp Reports no additional complaints GI Reports no additional complaints Reports as per HPI Musc Reports no additional complaints Physical Exam Telemedicine evaluation Appropriate responses Regular breathing rate and rhythm HEENT Head: Yes normal to inspection Ears: hearing grossly normal bilaterally Eyes General: appearance normal, both eyes and all related structures Neck Neck: Yes normal visual inspection Chest Chest palpation & inspection: normal inspection of the chest Resp Effort & Inspection: normal respiratory effort and able to speak in complete sentences Telehealth Telehealth Telehealth Platform: [employer] Location of provider rendering services: practice address Location of patient: address on file Patient Identification confirmed using: Name, : Yes Telehealth method: video Patient verbally consented to treatment: Yes Patient verbally consented to billing insurance company: Yes Patient informed of any privacy concerns related to visit: Yes Assessment & Plan Assessment & Plan (1) Nocturia: Code(s): R35.1 - Nocturia Category: Medical (2) Hormone sensitive prostate cancer: Code(s): C61 - Malignant neoplasm of prostate; Z19.1 - Hormone sensitive malignancy status Category: Medical Plan Plan completion staging with imaging, stop finasteride, Prolaris, 6 week follow-up Orders: Orders MR pelvis wo/w con 2 Weeks C61 - Malignant neoplasm of prostate, Z19.1 - Hormone sensitive malignancy status PET CT fusion skull to thigh 09/09/24 C61 - Malignant neoplasm of prostate, Z19.1 - Hormone sensitive malignancy status Medications: New finasteride 5 mg PO DAILY 90 tabs 1RF 90 days C61 - Malignant neoplasm of prostate, Z19.1 - Hormone sensitive malignancy status, N40.1 - Benign prostatic hyperplasia with lower urinary tract symptoms, N13.8 - Other obstructive and reflux uropathy, R33.9 - Retention of urine, unspecified Patient Instructions: Imaging studies, laboratory and physical exam results were discussed and reviewed in detail. No major barriers to patient understanding were identified. An opportunity to ask questions regarding the treatment plan was provided. All questions were answered. The patient expressed understanding and agreement with the above treatment plan. The patient is aware they should contact our office by phone for worsening of their current condition or the appearance of new urologic symptoms. Compliance is encouraged with any medications and followup testing that is ordered. It is a privilege to participate in the urologic care of your patient. If you have any questions or concerns regarding treatment for the above conditions, or other urologic issues, please do not hesitate to contact me. The office telephone contact is [phone]. This note is constructed using voice recognition software. While every effort has been made to ensure accuracy lapper errors may have been included. Yours sincerely, Dr Héctor Dominguez MD, [facility] - Urology Providers of Expert, Compassionate Care for the Genitourinary System Coding Level of Care Code Tele Est Pt Level 4 (56487) Diagnoses Nocturia R35.1 Hormone sensitive prostate cancer C61; Z19.1
== END 2024-09-09 16:00 | disposition home or self-care (01) ==
LOC: HO.HUSH 15:02
PROVIDERS: PCP Nurse Practitioner Family; Visit Provider Urology
DX: R35.1 Nocturia (principal); C61 Malignant neoplasm of prostate; Z19.1 Hormone sensitive malignancy status
CPT/HCPCS: 99214

== ENCOUNTER → 2024-09-09 15:02 | Outpatient (BNVA) | payer MEDICARE, SELFPAY | PROVIDERS: PCP Nurse Practitioner Family; Visit Provider Urology ==

== ENCOUNTER 2024-09-21 08:29 | Outpatient (REF) | payer MEDICARE, SELFPAY ==
[2024-09-21] MEDS: gadobutroL 10 ML VIAL IVPUSH (10:19)
== END 2024-09-21 08:30 | disposition home or self-care (01) ==
LOC: HO.MRI 08:29
PROVIDERS: PCP Nurse Practitioner Family; Visit Provider Urology
DX: C61 Malignant neoplasm of prostate (principal); Z19.1 Hormone sensitive malignancy status
CPT/HCPCS: 72197; A9585

== ENCOUNTER 2024-11-15 08:05 | Outpatient (REF) | payer MEDICARE, SELFPAY ==
--- NOTE | ~2024-11-15 | PE_ITS ---
EXAMINATION: 68Ga-PSMA (ILLUCCIX) PET/CT CLINICAL INDICATION: Initial treatment management. Prostate cancer. PROCEDURE: Radiopharmaceutical: 68Ga-PSMA (Illuccix); Dose: 5.4 mCi injected in the left antecubital fossa. Image acquisition: 67 minutes following IV radiotracer administration, positron emission tomography was performed from the mid thighs to vertex. Non-contrast low-dose helical CT imaging was performed over the same range without breath-hold for attenuation correction of PET images and anatomic correlation. Total CT exam dose-length product 947.65 mGy-cm * These CT images were obtained using dose optimization techniques as appropriate, variously including the following: Automated exposure control * Adjustment of mA and/or kV according to patient size (this includes techniques or standardized protocols for targeted exams where dose is matched to indication/reason for exam; i.e. extremities or head) * Use of iterative reconstruction technique COMPARISON: No previous PET CT scan is available for comparison. MRI of the pelvis dated 09/21/2024 is available for comparison. Additional Clinical information:Prostate biopsy 08/25/2024 Surgery:No ; XRT: No ADT: No PSA: Not available. FINDINGS: NECK AND VISUALIZED HEAD: There are no foci of abnormal PSMA activity in this region. The distribution of activity appears physiological. THORAX: There are no foci of abnormal PSMA activity in the chest. No suspicious pulmonary nodules are visualized. There is no pleural or pericardial fluid, or pneumothorax. There is no mediastinal, supraclavicular, or axillary lymphadenopathy. ABDOMEN AND PELVIS: There are no additional foci of abnormal PSMA activity in the abdomen or pelvis. Physiological activity in the liver, spleen, and kidneys is noted and these organs appear unremarkable on the nondiagnostic CT images. There is also physiological bowel activity visualized. The prostate gland is normal in size. There are 2 discrete FDG avid foci in the prostate. The most intense is in the anterior transitional zone in the apex, showing SUVmax 9.1, slice 270/311. The other is in the right posterior peripheral zone in the apex. There are no other discrete foci of abnormal PSMA activity in the prostate. There is physiological PSMA activity in the liver, spleen, kidneys, and these organs appear unremarkable on the nondiagnostic CT images. There is also physiological activity in the gastrointestinal tract. There is no retroperitoneal, mesenteric, pelvic or inguinal lymphadenopathy. MUSCULOSKELETAL: There are no foci of abnormal PSMA activity in the osseous structures. There are diffuse degenerative changes in the spine. No suspicious sclerotic or lytic lesions are visualized. VASCULAR: Scattered vascular calcifications are present. SUVmax REFERENCE: Blood: 1.6, slice 118/311; Liver: 9.3, slice 147/311; Parotid: 16.0, on the right, slice 68/311; PET/PET CT fusion skull to thigh IMPRESSION: 1. There are 2 foci of abnormal PSMA activity of low to intermediate intensity in the prostate, strongly suspicious for foci of prostate malignancy. 2. No additional abnormalities suspicious for metastatic or other malignant lesions are visualized. PSMA score reference: Score Reported PSMA expression Uptake 0 No Below blood pool 1 Low Equal to or above blood pool and lower than liver 2 Intermediate Equal to or above liver and lower than parotid gland 3 High Equal to or above parotid gland Electronically signed by: Jim Villanueva MD 11/22/2024 04:05 PM JERAMY
== END 2024-11-15 08:06 | disposition home or self-care (01) ==
LOC: HO.PET 08:05
PROVIDERS: PCP Nurse Practitioner Family; Visit Provider Urology
DX: Z13.89 Encounter for screening for other disorder (principal)

== ENCOUNTER 2024-11-24 11:48 | Outpatient (AMB) | payer MEDICARE, SELFPAY ==
--- NOTE | 2024-11-24 11:49 | MHC.OFFVIS ---
Intake Visit Reasons: folow up/MRI/Pet-CT Intake Note: Patient is present for F/U MRI/PET-CT Urology Medication:FINASTERIDE Antibiotic Allergy:NONE Blood Thinner:NONE Wellness Program Manager Required: No Allergies cats Allergy (Unknown, Uncoded 11/24/24 11:49) Unknown HPI Comments Details: Amado is a pleasant male. He is a patient of Dr. Haas. 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 Prostate cancer - Grade Group 2, low volume, organ confined 09/22 NCCN 2004 PSA at diagnosis 5.5 Free 6% TRUS volume 25gm Cancer biopsy does not meet clear threshold for active surveillance based on core number, total volume of positive core However no core more than 50% and all cores were confined to right side Histologic type: Adenocarcinoma, acinar type Griffin score: 3+4=7 (right base lateral 10% and medial 10%, right mid lateral 50%, right apex medial 10%) 3+3=6 (right mid medial 10%, right apex lateral 40%) Number cores positive: 6 Total number of cores: 12 % of tissue involved: 15% of all tissue examined Periprostatic fat inv.: Not identified Seminal vesicle inv.: Not identified Perineural inv.: Present (in 4 of the 6 cores with tumor) LVI: Not identified Staging - Karma shows low cell cycle score 3.6. Additional clinical information places him at threshold for single modality therapy. PET-CT - active in prostate. There are 2 discrete FDG avid foci in the prostate. The most intense is in the anterior transitional zone in the apex, showing SUVmax 9.1, slice 270/311. The other is in the right posterior peripheral zone in the apex. There are no other discrete foci of abnormal PSMA activity in the prostate. MRI confined disease [facility] Medical History Prostate carcinoma Basal cell carcinoma (BCC) Actinic keratitis TIA (transient ischemic attack) Dyslipidemia Surgical History History of knee replacement procedure of right knee Family History Father No problems noted. Mother HTN (hypertension) Brother No problems noted. Sister No problems noted. Daughter No problems noted. Daughter No problems noted. Social History Housing: Condominium Alcohol intake: current Alcohol intake frequency: a few times a month Patient Tobacco Use Status: Never used Tobacco e-Cigarette/Vaping Use: Never Used Second Hand Smoke Exposure: No service: No Current occupational status: retired Current occupational exposures/hazards: No Cognitive needs: No Hearing needs: No Vision needs: No Review of Systems Const All systems reviewed & are unremarkable except as noted in HPI and below Reports no additional complaints Resp Reports no additional complaints GI Reports no additional complaints Reports as per HPI Musc Reports no additional complaints Physical Exam Telemedicine evaluation Appropriate responses Regular breathing rate and rhythm HEENT Head: Yes normal to inspection Ears: hearing grossly normal bilaterally Eyes General: appearance normal, both eyes and all related structures Neck Neck: Yes normal visual inspection Chest Chest palpation & inspection: normal inspection of the chest Resp Effort & Inspection: normal respiratory effort and able to speak in complete sentences Telehealth Telehealth Location of provider rendering services: practice address Location of patient: address on file Patient Identification confirmed using: Name, : Yes Telehealth method: voice only Patient verbally consented to treatment: Yes Patient verbally consented to billing insurance company: Yes Patient informed of any privacy concerns related to visit: Yes Assessment & Plan Assessment & Plan (1) Hormone sensitive prostate cancer: Code(s): C61 - Malignant neoplasm of prostate; Z19.1 - Hormone sensitive malignancy status Category: Medical Plan Three-month follow-up PSA office Orders: Orders PSA,Total (Free>4and<10) 3 Months C61 - Malignant neoplasm of prostate, Z19.1 - Hormone sensitive malignancy status Patient Instructions: Imaging studies, laboratory and physical exam results were discussed and reviewed in detail. No major barriers to patient understanding were identified. An opportunity to ask questions regarding the treatment plan was provided. All questions were answered. The patient expressed understanding and agreement with the above treatment plan. The patient is aware they should contact our office by phone for worsening of their current condition or the appearance of new urologic symptoms. Compliance is encouraged with any medications and followup testing that is ordered. It is a privilege to participate in the urologic care of your patient. If you have any questions or concerns regarding treatment for the above conditions, or other urologic issues, please do not hesitate to contact me. The office telephone contact is [phone]. This note is constructed using voice recognition software. While every effort has been made to ensure accuracy molder punch errors may have been included. Yours sincerely, Dr Héctor Dominguez MD, [facility] - Urology Providers of Expert, Compassionate Care for the Genitourinary System Coding Level of Care Code Tele Est Pt Level 3 (89078) Diagnoses Hormone sensitive prostate cancer C61; Z19.1
== END 2024-11-24 12:42 | disposition home or self-care (01) ==
LOC: HO.HUSH 11:48
PROVIDERS: PCP Nurse Practitioner Family; Visit Provider Urology
DX: C61 Malignant neoplasm of prostate (principal); Z19.1 Hormone sensitive malignancy status
CPT/HCPCS: 99442

== ENCOUNTER 2025-02-10 10:12 | Outpatient (REF) | payer MEDICARE, SELFPAY ==
[2025-02-10 13:47] LABS: MANUAL DIFF FLAG NO
[2025-02-10 13:51] LABS: Appearance Urine Clear; Color Urine Yellow; Glucose Urine UA Negative (Negative); Leukocyte Esterase Urine Negative (Negative); Nitrite Urine Negative (Negative); PH 5.5 (5.0-9.0); Specific Gravity - Urine 1.025 (1.005-1.025); UMIC TRIGGER UACC YES; Urine Blood Trace (Negative); Urine Ketones Trace mg/dL (Negative); Urine Protein 30 (1+) mg/dL (Neg-Trace)
[2025-02-10 13:57] LABS: Basophils Percent Auto 0.9 % (0-2); Eosinophils Percent Auto 0.7 % (0-4); Hematocrit 43.6 % (42.0-52.0); Hemoglobin 14.7 g/dl (14.0-18.0); Imm Gran Abs Auto 0.01 X10*3/uL (0.00-0.03); Imm Gran Pct Auto 0.2 % (0.0-0.4); Lymphocytes Absolute Auto 1.2 X10*3/uL (1.2-4.9); Mean Corpuscular HGB Conc 33.7 g/dl (31.0-36.0); Mean Corpuscular Hemoglobin 31.3 pg (27.0-33.0); Mean Corpuscular Volume 92.8 fL (80.0-98.0); Mean Platelet Volume 9.9 fL (9.4-12.4); Monocytes Absolute Auto 0.4 X10*3/uL (0.1-1.2); Neutrophils Absolute Auto 2.8 x10*3/uL (2.0-8.3); Neutrophils Percent Auto 63.2 % (45-73); Platelet Count 298 X10*3/uL (160-400); Red Cell Distribution Width 13.1 % (11.0-16.0); White Blood Count 4.4 X10*3/uL (4.8-10.8)
[2025-02-10 13:58] LABS: Bacteria Urine None Seen (None Seen); Hyaline Casts Urine 0-2 /LPF (0-2); RBC Urine 0-2 /HPF (0-2); Squamous Epithelial Cell Urine 0-2 /HPF (0-2); WBC Urine 0-5 /HPF (0-5)
[2025-02-10 14:20] LABS: PSA,Total (Free>4and<10) 2.04 ng/mL (0.00-4.00)
[2025-02-10 14:21] LABS: Prostate Specific Antigen Scr 2.13 ng/mL (<0.05-4.0)
[2025-02-10 14:25] LABS: Alanine Aminotransferase 50 U/L (0-40); Albumin Level 4.2 g/dL (3.5-5.0); Alkaline Phosphatase 85 U/L (39-117); Anion Gap 13 (12-20); Aspartate Amino Transferase 36 U/L (5-37); Bilirubin Total 0.6 mg/dL (0.0-1.0); Blood Urea Nitrogen 21 mg/dL (9-16); Calcium 9.5 mg/dL (8.4-10.2); Carbon Dioxide 28 mmol/L (22-29); Chloride 104 mmol/L (96-108); Cholesterol 161 mg/dL (<200); Estimated Glomerular Filt Rate > 60; Glucose Fasting 97 mg/dL (60-99); HDL Cholesterol 61 mg/dL (>40); LDL Cholesterol Calculated 80 mg/dL (<100); Potassium 4.5 mmol/L (3.3-5.1); Sodium 140 mmol/L (135-145); Total Protein 7.7 g/dL (6.5-8.0); Triglycerides 101 mg/dL (<150)
[2025-02-10 14:27] LABS: TSH reflex Free T4 2.88 uIU/mL (0.32-4.0); Vitamin D 25-OH Total 45.5 ng/mL (>30)
== END 2025-02-10 10:13 | disposition home or self-care (01) ==
LOC: HO.HMGCLDS 10:12
PROVIDERS: PCP Nurse Practitioner Family; Referring Provider Urology; Visit Provider Nurse Practitioner Family
DX: Z12.5 Encounter for screening for malignant neoplasm of prostate (principal); C61 Malignant neoplasm of prostate; E78.5 Hyperlipidemia, unspecified; E55.9 Vitamin D deficiency, unspecified; Z19.1 Hormone sensitive malignancy status
CPT/HCPCS: 36415; 80053; 80061; 81001; 82306; 84153; 84443; 85025

== ENCOUNTER 2025-02-22 08:02 | Outpatient (AMB) | payer MEDICARE, SELFPAY ==
--- NOTE | 2025-02-22 08:15 | AM.OFFVISMDC ---
Intake Vital Signs 02/22/25 08:16 Height 5 ft 10 in Weight 217 lb BMI 31.1 BP 120/74 Blood Pressure Location Lt brachial Position Sitting Pulse 73 Pulse Source Pulse Oximeter Temp 97.9 F Temp Source Oral Pulse Oximetry (%) 98 Oxygen Delivery Method Room Air Intake Visit Reasons: AWV G0438 [employer] Required: No Accompanied by: Self / Same As Patient Allergies cats Allergy (Unknown, Uncoded 02/22/25 09:31) Unknown Medication List - Last Reconciled 02/22/25 by VIVIAN Nguyen- atorvastatin 80 mg PO DAILY 90 days finasteride 5 mg PO DAILY 90 days Do you need a note to return to daycare/school/sports/work: No HPI AWV G0438 HPI Details AWV: CCC and PPP in scan pile HPI Comments History of Present Illness Details labs recently performed. elevated liver enzyme noted, ordering a abd US and hepatitis screen. Educated pt on importance of watching his diet and getting plenty of exercise. Pt denies any ABD pain, N/V, bowel changes. SMall amt of protein in urine, will repeat after pushing fluids. FORMERLY [facility], [facility]–1983 Medical History Prostate carcinoma Basal cell carcinoma (BCC) Actinic keratitis TIA (transient ischemic attack) Dyslipidemia Surgical History History of knee replacement procedure of right knee Family History Father No problems noted. Mother HTN (hypertension) Brother No problems noted. Sister No problems noted. Daughter No problems noted. Daughter No problems noted. Social History Housing: Condominium Alcohol intake: current Alcohol intake frequency: a few times a month Patient Tobacco Use Status: Never used Tobacco e-Cigarette/Vaping Use: Never Used Second Hand Smoke Exposure: No service: No Current occupational status: retired Current occupational exposures/hazards: No Cognitive needs: No Hearing needs: No Vision needs: No Questionnaire Medicare Wellness Checkup [age] What gender do you identify with?: male During the past 4 weeks, how much have you been bothered by emotional problems such as feeling anxious, depressed, irritable, sad or downhearted, and blue?: not at all During the past 4 weeks, has your physical & emotional health limited your social activities with family, friends, neighbors, or groups?: not at all During the past 4 weeks, how much bodily pain have you generally had?: no pain During the past 4 weeks, was someone available to help you if you needed & wanted help?: yes, as much as I wanted During the past 4 weeks, what was the hardest physical activity you could do for at least 2 minutes?: heavy Can you get to places out of walking distance without help? (For eg., can you travel alone on buses, taxis or drive your car?): Yes Can you go shopping for groceries or clothes without someone's help?: Yes Can you prepare your own meals?: Yes Can you do your housework without help?: Yes Because of any health problems, do you need the help of another person with your personal care needs such as eating, bathing, dressing or getting around the house?: No Can you handle your own money without help?: Yes During the past 4 weeks, how would you rate your health in general?: very good During the past 4 weeks how have things been going for you?: very well; could hardly better Are you having difficulties driving your car?: no Do you always fasten your seat belt when you are in a car?: yes, usually During past 4 weeks, have you been bothered by the following: never: Falling or dizzy when standing up, Sexual problems?, Trouble eating well?, Teeth or denture problems?, Problems using the telephone? and Tiredness or fatigue? Have you fallen 2 or more times in the past year?: No Are you afraid of falling?: No Are you a smoker?: no During the past 4 weeks, how many drinks of wine, beer, or other alcoholic beverages did you have?: 2-5 drinks per week Do you exercise for about 20 minutes 3 or more times a week?: yes, most of the time Have you been given information to help with the following?: no: Hazards in your house that might hurt you? and no: Keeping track of your medications? How often do you have trouble taking medicines the way you have been told to take them?: I always take medicine as prescribed How confident are you that you can control & manage most of your health problems?: very confident What is your race?: White Mini Mental State Exam (MMSE) Orientation What is the (year) (season) (date) (day) (month)?: year, season, date, day and month Where are we (state) (county) (town or city) (hospital) (floor)?: state, county, town or city, hospital/clinic and floor Registration Name of 3 unrelated objects clearly and slowly, then ask patient to repeat all 3 of them. (1st repeat determines score. Make sure they can repeat all three): object 1, object 2 and object 3 Attention & Calculation (CHOOSE ONE) Spell WORLD backwards (DLROW): 5 letters Recall Ask patient to repeat the 3 items from question #3.: object 1, object 2 and object 3 Language Ask the patient to 'take a piece of paper with their right hand' 'fold paper in half' 'place paper on floor': take paper in right hand, fold paper in half and place paper on floor Print the sentence 'CLOSE YOUR EYES' on a piece. If patient actually closes eyes then score.: followed written direction Give patient a blank piece of paper & ask to write a sentence. Score if it contains a noun & verb.: sentence contains subject and verb Ask patient to copy figure of intersecting pentagons exactly. Score if all 10 angles & 2 intersects are included.: all 10 angles present & 2 are intersected Score Score: 27 Activity of Daily Living Bathing - sponge bath, tub bath or shower: receives no assistance (gets in/out by self, if usual bathing means Dressing - getting clothes from closets & drawers, including inner/outer garments & fasteners.: gets clothes & gets completely dressed without help Toileting - going to the 'toilet room' for urine/bowel elimination & cleaning self/arranging clothes: goes to toilet room, cleans self, arranges clothes without help Transfer: moves in & out of bed and chair without help (may use support object) Continence: controls urination/bowel movements completely by self Feeding: feeds self without help Total Score: 0 Information obtained from: patient Using telephone: independent Traveling: independent Shopping: independent Preparing meals: independent Housework: independent Taking medicine: independent Managing money: independent PHQ-9 Over the last 2 weeks, how often have you been bothered by any of the following problems? 1. Little interest or pleasure in doing things: not at all 2. Feeling down, depressed, or hopeless: not at all 3. Trouble falling or staying asleep, or sleeping too much: not at all 4. Feeling tired or having little energy: not at all 5. Poor appetite or overeating: not at all 6. Feeling bad about yourself - or that you are a failure or have let yourself or your family down: not at all 7. Trouble concentrating on things, such as reading the newspaper or watching television: not at all 8. Moving or speaking so slowly that other people could have noticed. Or the opposite - being so fidgety or restless that you have been moving around a lot more than usual: not at all 9. Thoughts that you would be better off or of hurting yourself in some way: not at all Total score: 0 Depression Screening Interpretation: Negative Depression Screening Done: Yes 48010 - PHQ-9 Billing: Yes Source: Developed by Drs. Bernabe Dye, Jeffery Guerrero and colleagues, with an educational kasi from [employer]. ROXANNE-7 AMB Questionnaire ROXANNE-7 Date ROXANNE - 7 assessed: 02/22/25 Feeling nervous, anxious, or on edge: 0 = Not at all Not being able to stop or control worryin = Not at all Worrying too much about different things: 0 = Not at all Trouble relaxin = Not at all Being so restless that it is hard to sit still: 0 = Not at all Becoming easily annoyed or irritable: 0 = Not at all Feeling afraid as if something awful might happen: 0 = Not at all Total ROXANNE-7 score (0-4 normal; 5-9 mild; 10-14 moderate; 15-21 severe): 0 Source: Developed by Drs. Bernabe Dye, Jeffery Guerrero and colleagues, with an educational kasi from [employer]. ROXANNE-7 Assessment Billing ROXANNE-7 Assessment Tool: ROXANNE-7 Assessment 45646 Review of Systems Const Reports as per HPI Physical Exam Vital Signs: Last Vital Signs Temp 97.9 F 02/22/25 08:16 Pulse 73 02/22/25 08:16 BP 120/74 02/22/25 08:16 Pulse Ox 98 02/22/25 08:16 Oxygen Delivery Method Room Air 02/22/25 08:16 BMI result Body Mass Index 31.1 Neuro Other: neg rhomberg, passed whisper test, able to stand from sitting position, able to tandem walk without difficulty Assessment & Plan Assessment & Plan (1) Proteinuria: Code(s): R80.9 - Proteinuria, unspecified (2) Elevated liver enzymes: Code(s): R74.8 - Abnormal levels of other serum enzymes (3) Medicare annual wellness visit, initial: Code(s): Z00.00 - Encounter for general adult medical examination without abnormal findings Plan . Orders: Orders UA CC w/rflx Micro + Cult Today R80.9 - Proteinuria, unspecified Hepatitis A,B,C Profile Today R74.8 - Abnormal levels of other serum enzymes US abdomen complete Today R74.8 - Abnormal levels of other serum enzymes Quality Reporting (2019) Depression/Bipolar (159/160/161/177) PHQ-9: Total score: 0 Coding Level of Care Code Medicare First (G0438) Est Pt Level 3 (15835) Diagnoses Proteinuria R80.9 Elevated liver enzymes R74.8 Medicare annual wellness visit, initial Z00.00 CPT Codes Advance Care Planning - Time spent: 1-15 minutes, on File ([id number]) Additional Codes ROXANNE-7 Assessment Billing - ROXANNE-7 Assessment Tool: ROXANNE-7 Assessment 16386 ([id number]) PHQ-9 - 52246 - PHQ-9 Billing: Yes ([id number]) Advance Care Planning Forms completed: Health Care Proxy (form given to pt), MOLST (form filled out by pt) and Living will (process started) Time spent: 1-15 minutes, on File Actual minutes spent: 15
[2025-02-22 08:16] VITALS: BP 120/74; PULSE 73; TEMP 36.6; O2SAT 98; BMI 31.1
== END 2025-02-22 09:37 | disposition home or self-care (01) ==
LOC: HO.HMCC 08:03
PROVIDERS: PCP Nurse Practitioner Family; Visit Provider Nurse Practitioner Family
DX: Z00.00 Encounter for general adult medical examination without abnormal findings (principal); R80.9 Proteinuria, unspecified; R74.8 Abnormal levels of other serum enzymes; Z23 Encounter for immunization

== ENCOUNTER → 2025-02-22 08:02 | Outpatient (BNVA) | payer MEDICARE, SELFPAY | PROVIDERS: PCP Nurse Practitioner Family; Visit Provider Nurse Practitioner Family | DX: Z00.00 Encounter for general adult medical examination without abnormal findings (principal); Z23 Encounter for immunization; R80.9 Proteinuria, unspecified; R74.8 Abnormal levels of other serum enzymes | CPT/HCPCS: 90471; 90677; 96127; 99212 ==

== ENCOUNTER 2025-02-28 08:13 | Outpatient (AMB) | payer MEDICARE, SELFPAY ==
--- NOTE | 2025-02-28 08:27 | A.OFFVIS_ITS ---
Intake Visit Reasons: 3M/PSA Intake Note: Patient is present for 3M/PSA Urology Medication:FINASTERIDE Antibiotic Allergy:NONE Blood Thinner:NONE Carpet Cutter Required: No Allergies cats Allergy (Unknown, Uncoded 02/28/25 08:28) Unknown HPI Comments Details: Amado is a pleasant male. He is a patient of Dr. Haas. He is seen for the following urologic conditions - prostate cancer Accompanied by PSA shows fall to 2.0 on finasteride Has had some mild side effects Recommend changing finasteride to Thursday, Thursday, Thursday Alternate months Has upcoming wedding of daughter in May in [place] Discussed options including surveillance versus single modality treatments At this stage is comfortable with surveillance Happy to have 2nd opinion if he wishes Discussed findings which can be summarized as - low volume grade group 2 organ confined prostate cancer Prostate cancer - Grade Group 2, low volume, organ confined 09/22 NCCN 2004 PSA at diagnosis 5.5 Free 6% TRUS volume 25gm Cancer biopsy does not meet clear threshold for active surveillance based on core number, total volume of positive core However no core more than 50% and all cores were confined to right side Histologic type: Adenocarcinoma, acinar type Griffin score: 3+4=7 (right base lateral 10% and medial 10%, right mid lateral 50%, right apex medial 10%) 3+3=6 (right mid medial 10%, right apex lateral 40%) Number cores positive: 6 Total number of cores: 12 % of tissue involved: 15% of all tissue examined Periprostatic fat inv.: Not identified Seminal vesicle inv.: Not identified Perineural inv.: Present (in 4 of the 6 cores with tumor) LVI: Not identified Staging - Prolaris shows low cell cycle score 3.6. Additional clinical information places him at threshold for single modality therapy. Overall polaris scoring places him at unfavorable intermediate. PET-CT - active in prostate. There are 2 discrete FDG avid foci in the prostate. The most intense is in the anterior transitional zone in the apex, showing SUVmax 9.1, slice 270/311. The other is in the right posterior peripheral zone in the apex. There are no other discrete foci of abnormal PSMA activity in the prostate. MRI confined disease - REGION OF INTEREST ONE: Location: Left base and mid anterolateral peripheral zone PI RADS category: 5 Dominant sequence:*Diffusion- weighted imaging [facility] Medical History Prostate carcinoma Basal cell carcinoma (BCC) Actinic keratitis TIA (transient ischemic attack) Dyslipidemia Surgical History History of knee replacement procedure of right knee Family History Father No problems noted. Mother HTN (hypertension) Brother No problems noted. Sister No problems noted. Daughter No problems noted. Daughter No problems noted. Social History Housing: Condominium Alcohol intake: current Alcohol intake frequency: a few times a month Patient Tobacco Use Status: Never used Tobacco e-Cigarette/Vaping Use: Never Used Second Hand Smoke Exposure: No service: No Current occupational status: retired Current occupational exposures/hazards: No Cognitive needs: No Hearing needs: No Vision needs: No Review of Systems Const Denies chills and Denies fever(s) Card Reports no additional complaints and Denies syncope Resp Denies cough GI Denies abdominal pain and Denies heartburn Reports as per HPI and Denies change in libido Neuro Denies syncope Psych Denies change in libido Endo Denies change in libido Physical Exam Const General: cooperative, healthy appearing, comfortable and no acute distress Orientation/consciousness: patient oriented x3 HEENT Face and sinus: Yes normal facial exam Mouth: moist mucous membranes Neck Neck: Yes normal visual inspection, Yes full ROM and Yes trachea midline Chest Chest palpation & inspection: normal inspection of the chest Resp Effort & Inspection: normal respiratory effort, able to speak in complete sentences and no respiratory distress GI Inspection: Yes normal to inspection Back/Spine/Pelvis Cervical Spine: normal cervical lordosis Thoracic/Lumbar Spine: thoracic and lumbar spine normal to inspection Skin General skin exam: no rashes or lesions noted Neuro General: patient oriented x3, gait normal, tone normal and moves all extremities Extrem General: Yes normal to inspection and Yes capillary refill normal Assessment & Plan Assessment & Plan (1) Hormone sensitive prostate cancer: Code(s): C61 - Malignant neoplasm of prostate; Z19.1 - Hormone sensitive malignancy status Category: Medical Plan Plan Prostate cancer currently low volume and contained to prostate. PSA monitoring every four months. Scheduled targeted biopsy within 18-24 months. Intermittent finasteride therapy detailed as one month on, one month off, administered MWF in active months. Low-risk of disease spread. Consider targeted cryotherapy or robotic prostatectomy if progression occurs. Continual surveillance recommended. Discussion Notes During the consultation, I explained the current management of prostate cancer with an emphasis on surveillance given its low-risk classification. We reviewed the PSA decrease under finasteride, which indicates a reduction in prostate size. Finasteride therapy will be adjusted to an intermittent schedule to dec rease risk of resistance, while maintaining drug sensitivity. Benefits, risks, and considerations of surgical interventions were discussed, with specifics on cryotherapy and brachytherapy reliant on imaging advancements. Surgical risk factors and impact on erectile function and urinary continence were outlined clearly. Statistical chances of disease metastasis and potential treatment interventions were reviewed, with consent for ongoing surveillance established. The patient was advised on the next PSA check in four months and anticipated biopsy planning. Patient Instructions - Continue finasteride one month on, one month off, taking it Thursday, Thursday, and Thursday during the active month - Monitor PSA levels every four months - Return for reevaluation in four months - Communicate any new urinary symptoms or changes - Seek additional opinions if desired to explore all treatment options Orders: Orders Prostate Specific Antigen 4 Months C61 - Malignant neoplasm of prostate, Z19.1 - Hormone sensitive malignancy status Patient Instructions: This note is constructed using voice recognition software. While every effort has been made to ensure accuracy structural steel equipment erector errors may have been included. Imaging studies, laboratory and physical exam results were discussed and reviewed in detail. No major barriers to patient understanding were identified. An opportunity to ask questions regarding the treatment plan was provided. All questions were answered. The patient expressed understanding and agreement with the above treatment plan. The patient is aware they should contact our office by phone for worsening of their current condition or the appearance of new urologic symptoms. Compliance is encouraged with any medications and followup testing that is ordered. It is a privilege to participate in the urologic care of your patient. If you have any questions or concerns regarding treatment for the above conditions, or other urologic issues, please do not hesitate to contact me. The office telephone contact is [phone]. Sincerely, Dr Héctor Dominguez MD, [facility] - Urology Compassionate Specialist Care for the Genitourinary System Coding Level of Care Code Est Pt Level 4 (55864) Complex EM visit Add On G2211 Diagnoses Hormone sensitive prostate cancer C61; Z19.1
== END 2025-02-28 09:19 | disposition home or self-care (01) ==
LOC: HO.HUSH 08:13
PROVIDERS: PCP Nurse Practitioner Family; Visit Provider Urology
DX: C61 Malignant neoplasm of prostate (principal); Z19.1 Hormone sensitive malignancy status
CPT/HCPCS: 99214; G2211

== ENCOUNTER → 2025-02-28 08:13 | Outpatient (BNVA) | payer MEDICARE, SELFPAY | PROVIDERS: PCP Nurse Practitioner Family; Visit Provider Urology | DX: C61 Malignant neoplasm of prostate (principal); Z19.1 Hormone sensitive malignancy status | CPT/HCPCS: 99212 ==

== ENCOUNTER 2025-03-23 10:22 | Outpatient (REF) | payer MEDICARE, SELFPAY ==
--- NOTE | ~2025-03-23 | US_ITS ---
EXAMINATION: US ABDOMEN HISTORY: R74.8 - Abnormal levels of other serum enzymes TECHNIQUE: Real-time grayscale ultrasound imaging of the abdomen was performed and images were reviewed. COMPARISON: There are no prior studies for comparison. FINDINGS: Liver: The right lobe of the liver measures 14.9 cm in size. The left lobe of the liver measures 9.2 cm in size. The liver demonstrates increased echotexture, consistent with steatosis. No focal mass or intrahepatic biliary ductal dilatation is identified. There is normal hepatopedal flow in the portal vein. Gallbladder and biliary tree: The gallbladder is unremarkable, without evidence of calculi, wall thickening, or pericholecystic fluid. There is no sonographic Issa sign. The common bile duct is normal in caliber measuring 3 mm. Kidneys: The right kidney measures 11.6 cm in length. The left kidney measures 11.6 cm in length. The kidneys are unremarkable, without evidence of masses, hydronephrosis, or calculi. Pancreas: There is limited visualization of the pancreas. Spleen: The spleen is normal in size and contour, measuring 8.9 cm in length. Abdominal aorta and inferior vena cava: The visualized portions of the abdominal aorta and inferior vena cava are normal in caliber. There is no free fluid in the abdomen. US/US abdomen complete IMPRESSION: Hepatic steatosis. Limited visualization of the pancreas. Otherwise unremarkable abdominal ultrasound. Electronically signed by: Bernabe Bhardwaj MD 03/24/2025 11:09 AM EDT
== END 2025-03-23 10:23 | disposition home or self-care (01) ==
LOC: HO.HMGCX 10:22
PROVIDERS: PCP Nurse Practitioner Family; Visit Provider Nurse Practitioner Family
DX: R74.8 Abnormal levels of other serum enzymes (principal)
CPT/HCPCS: 76700

== ENCOUNTER → 2025-03-23 10:24 | Outpatient (BNV) | payer MEDICARE, SELFPAY | PROVIDERS: PCP Nurse Practitioner Family; Visit Provider Radiology Diagnostic Radiology | DX: R74.8 Abnormal levels of other serum enzymes (principal) | CPT/HCPCS: 76700 ==

== ENCOUNTER 2025-06-22 10:02 | Outpatient (REF) | payer MEDICARE, SELFPAY ==
--- OUTSIDE RECORDS SUMMARY | 2025-06-22 10:49 | XMS_ITS | Patient Health Record ---
Author Organization [facility] Address [address] [place] [address] Care Team Providers Care Dye Machine Tender Name Role Phone MARLENE BRUNO Primary Care Provider Colton Alvarez Jr Unavailable [phone] Allergies Allergen (clinical drug ingredient) Drug/Non Drug Allergy documented on EMR Reaction Allergy Type Onset Date Status enviromental (uncoded) Unknown Allergy Active Reason For Referral No Information Medications Medication SIG (Take, Route, Frequency, Duration) Notes Start Date End Date Status Sudafed Active Social History Tobacco Use: Social History Observation Description Date Details (start date - stop date) Never Smoker NA - NA Tobacco Use/Smoking Question Answer Notes Patient is a nonsmoker Alcohol Screen Question Answer Notes Did you have a drink contain ing alcohol in the past year? Yes How often did you have a dri nk containing alcohol in the past year? Monthly or less (1 point) How many drinks did you have on a typical day when you were drinking in the past year? 1 or 2 drinks (0 point) Points 1 Interpretation Negative Problems Problem Type SNOMED Code ICD Code Onset Dates Problem Status W/U Status Risk Notes Problem 059480685 Colon cancer screening (Z12.11) Active confirmed Problem [id number] Encounter for other preprocedural examination (Z01.818) Active confirmed Plan Of Treatment Future Test Test Name Order Date COLONOSCOPY 09/10/2017 Insurance Providers Payer Name Payer Address Payer Phone Subscriber Number Group Number Insured Name Patient Relationship to Insured Coverage Start Date Coverage End Date [facility] [id number] [facility] [phone] [id number] YOVANNY BUENROSTRO Self - patient is the insured Medical (General) History Medical History History ICD Code Denies [place],DM,CVA,Lung disease,renal dise ase seasonal allergies Surgical History Surgery Date(Month/Year) knee replacement mutiple 2014
[2025-06-22 13:59] LABS: Prostate Specific Antigen 2.02 ng/mL (<0.05-4.0)
== END 2025-06-22 10:03 | disposition home or self-care (01) ==
LOC: HO.HMGCLDS 10:02
PROVIDERS: PCP Nurse Practitioner Family; Visit Provider Urology
DX: C61 Malignant neoplasm of prostate (principal); Z19.1 Hormone sensitive malignancy status
CPT/HCPCS: 36415; 84153

== ENCOUNTER 2025-07-04 08:48 | Outpatient (AMB) | payer MEDICARE, SELFPAY ==
--- NOTE | 2025-07-04 08:49 | A.OFFVIS_ITS ---
Intake Visit Reasons: 4m/PSA Intake Note: Patient is present for 4 mo follow up TELEHEALTH Urology Medication:FINASTERIDE Antibiotic Allergy:NONE Blood Thinner:NONE Labs done : 06/22/2025 2.02 Kelp Or Seagrass Gatherer Required: No Accompanied by: Self / Same As Patient Allergies cats Allergy (Unknown, Uncoded 02/28/25 08:28) Unknown HPI Comments Details: Amado is a pleasant male. He is a patient of Dr. Haas. He is seen for the following urologic conditions - prostate cancer Telemedicine Evaluation 15 min Consultation [facility] [employer] Video PSA shows fall to 2.0 on finasteride Finasteride to Thursday, Thursday, Thursday Daughter's wedding in May in [facility] went well Low volume grade group 2 organ confined prostate cancer PSA 02/21 2.0, 06/23 2.0 Nocturia 1-2. Does have bother. Trial tadalafil. Prostate cancer - Grade Group 2, low volume, organ confined 09/22 NCCN 2004 PSA at diagnosis 5.5 Free 6% TRUS volume 25gm Cancer biopsy does not meet clear threshold for active surveillance based on core number, total volume of positive core However no core more than 50% and all cores were confined to right side 09/22 Histologic type: Adenocarcinoma, acinar type Pecos score: 3+4=7 (right base lateral 10% and medial 10%, right mid lateral 50%, right apex medial 10%) 3+3=6 (right mid medial 10%, right apex lateral 40%) Number cores positive: 6 Total number of cores: 12 % of tissue involved: 15% of all tissue examined Periprostatic fat inv.: Not identified Seminal vesicle inv.: Not identified Perineural inv.: Present (in 4 of the 6 cores with tumor) LVI: Not identified Staging - Prolaris shows low cell cycle score 3.6. Additional clinical information places him at threshold for single modality therapy. Overall polaris scoring places him at unfavorable intermediate. PET-CT - active in prostate. There are 2 discrete FDG avid foci in the prostate. The most intense is in the anterior transitional zone in the apex, showing SUVmax 9.1, slice 270/311. The other is in the right posterior peripheral zone in the apex. There are no other discrete foci of abnormal PSMA activity in the prostate. MRI confined disease - REGION OF INTEREST ONE: Location: Left base and mid anterolateral peripheral zone PI RADS category: 5 Dominant sequence:*Diffusion- weighted imaging [facility] Medical History Prostate carcinoma Basal cell carcinoma (BCC) Actinic keratitis TIA (transient ischemic attack) Dyslipidemia Surgical History History of knee replacement procedure of right knee Family History Father No problems noted. Mother HTN (hypertension) Brother No problems noted. Sister No problems noted. Daughter No problems noted. Daughter No problems noted. Social History Housing: Condominium Alcohol intake: current Alcohol intake frequency: a few times a month Patient Tobacco Use Status: Never used Tobacco e-Cigarette/Vaping Use: Never Used Second Hand Smoke Exposure: No service: No Current occupational status: retired Current occupational exposures/hazards: No Cognitive needs: No Hearing needs: No Vision needs: No Review of Systems Const All systems reviewed & are unremarkable except as noted in HPI and below Reports no additional complaints Resp Reports no additional complaints GI Reports no additional complaints Reports as per HPI Musc Reports no additional complaints Physical Exam Telemedicine evaluation Appropriate responses Regular breathing rate and rhythm HEENT Head: Yes normal to inspection Ears: hearing grossly normal bilaterally Eyes General: appearance normal, both eyes and all related structures Neck Neck: Yes normal visual inspection Chest Chest palpation & inspection: normal inspection of the chest Resp Effort & Inspection: normal respiratory effort and able to speak in complete sentences Telehealth Telehealth Telehealth Platform: [facility] Location of provider rendering services: practice address Location of patient: address on file Patient Identification confirmed using: Name, : Yes Telehealth method: video Patient verbally consented to treatment: Yes Patient verbally consented to billing insurance company: Yes Patient informed of any privacy concerns related to visit: Yes Minutes spent on Phone/Video with Pt.: 15 Assessment & Plan Assessment & Plan (1) Hormone sensitive prostate cancer: Code(s): C61 - Malignant neoplasm of prostate; Z19.1 - Hormone sensitive malignancy status Category: Medical (2) Nocturia: Code(s): R35.1 - Nocturia Category: Medical Plan Four month follow-up office PSA Trial tadalafil for nocturia Orders: Orders Prostate Specific Antigen 4 Months C61 - Malignant neoplasm of prostate, Z19.1 - Hormone sensitive malignancy status Medications: New tadalafil [id number] [facility] [id number] Member [id number] 5 mg PO DAILY 30 tabs 1RF nocturia 30 days R35.1 - Nocturia Patient Instructions: This note is constructed using voice recognition software. While every effort has been made to ensure accuracy oil laboratory analyst errors may have been included. Imaging studies, laboratory and physical exam results were discussed and reviewed in detail. No major barriers to patient understanding were identified. An opportunity to ask questions regarding the treatment plan was provided. All questions were answered. The patient expressed understanding and agreement with the above treatment plan. The patient is aware they should contact our office by phone for worsening of their current condition or the appearance of new urologic symptoms. Compliance is encouraged with any medications and followup testing that is ordered. It is a privilege to participate in the urologic care of your patient. If you have any questions or concerns regarding treatment for the above conditions, or other urologic issues, please do not hesitate to contact me. The office telephone contact is [phone]. Sincerely, Dr Héctor Dominguez MD, FATIMAH [facility] - Urology Compassionate Specialist Care for the Genitourinary System Coding Level of Care Code Tele Est Pt Level 4 (65579) Complex EM visit Add On G2211 Diagnoses Hormone sensitive prostate cancer C61; Z19.1 Nocturia R35.1
--- OUTSIDE RECORDS SUMMARY | 2025-07-04 09:03 | XMS_ITS | Patient Health Record ---
Author Organization [facility] Address [address] [place] [address] Care Team Providers Care Operations Project Manager Name Role Phone MARLENE BRUNO Primary Care Provider Colton Alvarez Jr Unavailable Allergies Allergen (clinical drug ingredient) Drug/Non Drug [...] Problem Status W/U Status Risk Notes Problem [id number] Colon cancer screening (Z12.11) Active confirmed Problem [id number] Encounter for other preprocedural examination (Z01.818) Active confirmed Plan Of Treatment Future Test Test Name Order Date COLONOSCOPY 09/10/2017 Insurance Providers Payer Name Payer Address Payer Phone Subscriber Number Group Number Insured Name Patient Relationship to Insured Coverage Start Date Coverage End Date [facility] [address] [facility] [phone] [id number] YOVANNY BUENROSTRO Self - patient is the insured Medical (General) History Medical History History ICD Code Denies [place],DM,CVA,Lung disease,renal dise ase seasonal allergies Surgical History Surgery Date(Month/Year) knee replacement mutiple 2014
== END 2025-07-04 10:35 | disposition home or self-care (01) ==
LOC: HO.HUSH 08:48
PROVIDERS: PCP Nurse Practitioner Family; Visit Provider Urology
DX: C61 Malignant neoplasm of prostate (principal); Z19.1 Hormone sensitive malignancy status; R35.1 Nocturia
CPT/HCPCS: 99214; G2211

== ENCOUNTER 2025-08-22 08:41 | Outpatient (REF) | payer MEDICARE, SELFPAY ==
--- OUTSIDE RECORDS SUMMARY | 2025-08-22 09:42 | XMS_ITS | Patient Health Record ---
Author Organization [facility] Address [address] [place] [address] Care Team Providers Care Award Clerk Name Role Phone MARLENE BRUNO Primary Care [...] Problem Status W/U Status Risk Notes Problem [id number] Colon cancer screening (Z12.11) Active confirmed Problem [id number] Encounter for other preprocedural examination (Z01.818) Active confirmed Plan Of Treatment Future Test Test Name Order Date COLONOSCOPY 09/10/2017 Insurance Providers Payer Name Payer Address Payer Phone Subscriber Number Group Number Insured Name Patient Relationship to Insured Coverage Start Date Coverage End Date [facility] [address] [facility] [phone] [id number] YOVANNY BUENROSTRO Self - patient is the insured Medical (General) History Medical History History ICD Code Denies AL,DM,CVA,Lung disease,renal dise ase seasonal allergies Surgical History Surgery Date(Month/Year) knee replacement mutiple 2014
[2025-08-22 13:22] LABS: HBS Num1 0.00 mIU/mL (0-7.99); HBc Num1 0.05 S/CO (0.00-0.79); HBsAGNum1 0.45 S/CO (0.00-0.99); Hepatitis A Antibody IgM 0.17 Index (0-0.79); Hepatitis B Surface Antigen Negative (Negative); ~HepC Num1 0.08 S/CO (0.00-0.79); ~Hepatitis A Antibody IgM Nonreactive (Nonreactive); ~Hepatitis B Surface Antibody NONREACTIVE (Nonreactive); ~Hepatitis C Antibody Nonreactive (Nonreactive)
== END 2025-08-22 08:42 | disposition home or self-care (01) ==
LOC: HO.HMGCLDS 08:41
PROVIDERS: PCP Nurse Practitioner Family; Visit Provider Nurse Practitioner Family
DX: R74.8 Abnormal levels of other serum enzymes (principal)
CPT/HCPCS: 36415; 81001; 81003; 86704; 86706; 86709; 86803; 87340

== ENCOUNTER 2025-08-31 08:21 | Outpatient (AMB) | payer MEDICARE, SELFPAY ==
[2025-08-31 08:27] VITALS: BP 148/80; PULSE 70; RESP 16; TEMP 36.7; BMI 30.7
--- NOTE | 2025-08-31 08:27 | A.OFFPC_ITS ---
Vital Signs 08/31/25 08:27 08/31/25 09:14 Height 5 ft 10 in Weight 214 lb BMI 30.7 BP 148/80 H 148/80 H Blood Pressure Location Lt brachial Rt brachial Position Sitting Sitting Respiration 16 Pulse 70 Pulse Source Palpation Temp 98.0 F Temp Source Oral Intake Visit Reasons: 6m follow up Senior Accounting Manager Required: No Accompanied by: Self / Same As Patient Allergies cats Allergy (Unknown, Uncoded 02/28/25 08:28) Unknown Tobacco use date assessed: 08/31/25 Fall risk assessment: No Falls in past year Last assessed Fall Risk: 08/31/25 Dental Screening Dental Screen Date: 08/31/25 Did you have a dental visit in the last 12 months?: Yes Did you have a dental problem in the last 6 months where you did not have access to dental care?: No Was dental information given to patient?: Patient has dentist HPI 6m follow up HPI Details Chief Complaint The patient presents with concerns regarding dyslipidemia and hypertension management. History of Present Illness The patient is a 70-year-old male presenting with dyslipidemia and hypertension. He is currently on atorvastatin 80 mg for dyslipidemia management. The patient denies any nausea, vomiting, dizziness, blurred vision, chest pain, or shortness of breath, indicating no acute exacerbations of his conditions. He reports a application lead had mentioned hypertensive retinopathy. The patient also has a history of fatty liver, which is being monitored with liver function tests planned for the near future. He denies any bowel changes, which suggests stable gastrointestinal health. Social History Health Maintenance Review of Systems - Gastrointestinal: Denies nausea, vomit ing, bowel changes - Cardiovascular: Denies chest pain, belkys rtness of breath - Neurological: Denies dizziness, blurre d vision, pickens Physical Exam General: Cooperative, healthy appearing, comfortable, no acute distress and well developed Orientation: Patient oriented x3 Limitations: No limitations Head: Normal to inspection Ears: Hearing grossly normal bilaterally Nose: Normal external nose present Face and sinus: Normal facial exam Eyes: Appearance normal, both eyes and all related structures Neck: Normal visual inspection and Yes full ROM Respiratory: Normal respiratory effort and able to speak in complete sentences. Clear to auscultation bilaterally Cardiovascular: Regular rate and rhythm. Normal S1 and S2 GI: Normal to inspection. Soft to palpation and nontender Neuro: Patient oriented x3 Extremities: Normal to inspection Results hep screen neg Plan 1. Dyslipidemia The patient is currently on atorvastatin 80 mg for dyslipidemia management. Liver function tests are planned to monitor the impact of the medication. 2. Hypertension Blood pressure was noted to be elevated, and it was rechecked during the visit. An EKG is ordered to assess cardiac function. Will have him take BPs at home and send me results in the near future. Starting irbesartan 75mg. First degree AV block on EKG. Pt did report family Hx of cardiomyopathy today, will order a stress test and echo. 3. Fatty Liver The patient has a history of fatty liver, and liver function tests are planned for further evaluation. Pt has been working on his weight. [facility] Medical History First degree AV block Prostate carcinoma Basal cell carcinoma (BCC) Actinic keratitis TIA (transient ischemic attack) Dyslipidemia Surgical History History of knee replacement procedure of right knee Family History Father No problems noted. Mother HTN (hypertension) Brother No problems noted. Sister No problems noted. Daughter No problems noted. Daughter No problems noted. Social History Housing: Condominium Alcohol intake: current Alcohol intake frequency: a few times a month Patient Tobacco Use Status: Never used Tobacco e-Cigarette/Vaping Use: Never Used Second Hand Smoke Exposure: No service: No Current occupational status: retired Current occupational exposures/hazards: No Cognitive needs: No Hearing needs: No Vision needs: No Questionnaire PHQ-9 Over the last 2 weeks, how often have you been bothered by any of the following problems? 1. Little interest or pleasure in doing things: not at all 2. Feeling down, depressed, or hopeless: not at all 3. Trouble falling or staying asleep, or sleeping too much: not at all 4. Feeling tired or having little energy: not at all 5. Poor appetite or overeating: not at all 6. Feeling bad about yourself - or that you are a failure or have let yourself or your family down: not at all 7. Trouble concentrating on things, such as reading the newspaper or watching television: not at all 8. Moving or speaking so slowly that other people could have noticed. Or the opposite - being so fidgety or restless that you have been moving around a lot more than usual: not at all 9. Thoughts that you would be better off or of hurting yourself in some way: not at all Total score: 0 Depression Screening Interpretation: Negative Depression Screening Done: Yes 93322 - PHQ-9 Billing: Yes Source: Developed by Drs. Bernabe Dye, Annemarie De La Garza, Jeffery Rosas and colleagues, with an educational kasi from [employer]. Thrive Questionnaire Date Thrive assessed: 08/24/25 I am a: Patient What is your living situation today?: I have a steady place to live Within the past 12 months, did the food you bought not last and you didn't have the money to get more?: Never true Within the past 12 months, did you worry whether your food would run out before you got money to buy more?: Never true Do you have trouble paying for medicines?: No Do you have trouble getting transportation to medical appointments?: No Do you have trouble paying your heating and electricity bill?: No Do you have trouble taking care of your child, family member or friend?: No Do you have trouble with day-to-day activities such as bathing, preparing meals, shopping, managing finances, etc.?: No Are you currently unemployed and looking for a job?: No Are you interested in more education?: No Please select the resources that you would like help with: None Currently or been in a relationship where the following occur: No concerns reported THRIVE Score: 0 AUDIT C Alcohol Use Questionnaire (AUDIT-C) 1. How often do you have a drink containing alcohol?: 2-3 times a week Total Score: 3 ROXANNE-7 AMB Questionnaire ROXANNE-7 Date ROXANNE - 7 assessed: 08/31/25 Feeling nervous, anxious, or on edge: 0 = Not at all Not being able to stop or control worryin = Not at all Worrying too much about different things: 0 = Not at all Trouble relaxin = Not at all Being so restless that it is hard to sit still: 0 = Not at all Becoming easily annoyed or irritable: 0 = Not at all Feeling afraid as if something awful might happen: 0 = Not at all Total ROXANNE-7 score (0-4 normal; 5-9 mild; 10-14 moderate; 15-21 severe): 0 Source: Developed by Drs. Bernabe Dye, Annemarie De La Garza, Jeffery Rosas and colleagues, with an educational kasi from [employer]. Physical exam (Primary Care) Vital Signs: Last Vital Signs Temp 98.0 F 08/31/25 08:27 Pulse 70 08/31/25 08:27 Resp 16 08/31/25 08:27 BP 148/80 H 08/31/25 08:27 BMI result Body Mass Index 30.7 Tobacco/Smoking Status: Tobacco use Status Tobacco use date assessed 08/31/25 08/31/25 08:32 Patient Tobacco Use Status Never used Tobacco 08/31/25 08:32 e-Cigarette/Vaping Use Never Used 08/31/25 08:32 Depression Screening Interpretation: Negative Thrive Assessment: Date of Thrive Assessment Date Thrive assessed 08/24/25 08/31/25 08:32 Currently or been in a relationship where the following occur: No concerns reported Coding Level of Care Code Est Pt Level 4 (72101) Diagnoses Fatty liver K76.0 Dyslipidemia E78.5 HTN (hypertension) I10 Family history of cardiomyopathy Z82.49 Additional Codes PHQ-9 - 12284 - PHQ-9 Billing: Yes ([id number]) Assessment & Plan Assessment & Plan (1) Fatty liver: Code(s): K76.0 - Fatty (change of) liver, not elsewhere classified Category: Medical (2) Dyslipidemia: Code(s): E78.5 - Hyperlipidemia, unspecified Category: Medical (3) HTN (hypertension): Code(s): I10 - Essential (primary) hypertension Category: Medical (4) Family history of cardiomyopathy: Code(s): Z82.49 - Family history of ischemic heart disease and other diseases of the circulatory system Category: Medical Plan . Orders: Orders Comprehensive Flushing. Panel Fast Today E78.5 - Hyperlipidemia, unspecified, K76.0 - Fatty (change of) liver, not elsewhere classified TSH reflex Free T4 Today E78.5 - Hyperlipidemia, unspecified, K76.0 - Fatty (change of) liver, not elsewhere classified UA CC w/rflx Micro + Cult Today E78.5 - Hyperlipidemia, unspecified, K76.0 - Fatty (change of) liver, not elsewhere classified AMB EKG-In Office Today I10 - Essential (primary) hypertension CA stress test Today I10 - Essential (primary) hypertension, Z82.49 - Family history of ischemic heart disease and other diseases of the circulatory system Complete Blood Count Auto Diff Today E78.5 - Hyperlipidemia, unspecified, K76.0 - Fatty (change of) liver, not elsewhere classified Lipid Panel Today E78.5 - Hyperlipidemia, unspecified, K76.0 - Fatty (change of) liver, not elsewhere classified CA echo transthoracic complete Today I10 - Essential (primary) hypertension, Z82.49 - Family history of ischemic heart disease and other diseases of the circulatory system NM cardiolite stress test Today I10 - Essential (primary) hypertension, Z82.49 - Family history of ischemic heart disease and other diseases of the circulatory system Medications: New irbesartan 75 mg PO DAILY 30 tabs 2RF
--- OUTSIDE RECORDS SUMMARY | 2025-08-31 08:35 | XMS_ITS | Patient Health Record ---
Author Organization [facility] Address [address] [place] [address] Care Team Providers Care Outside Production Inspector Name Role Phone MARLENE BRUNO Primary Care [...] Problem Status W/U Status Risk Notes Problem [id number] Colon cancer screening (Z12.11) Active confirmed Problem [id number] Encounter for other preprocedural examination (Z01.818) Active confirmed Plan Of Treatment Future Test Test Name Order Date COLONOSCOPY 09/10/2017 Insurance Providers Payer Name Payer Address Payer Phone Subscriber Number Group Number Insured Name Patient Relationship to Insured Coverage Start Date Coverage End Date [facility] [address] [facility] [phone] [id number] YOVANYN BUENROSTRO Self - patient is the insured Medical (General) History Medical History History ICD Code Denies VT,DM,CVA,Lung disease,renal dise ase seasonal allergies Surgical History Surgery Date(Month/Year) knee replacement mutiple 2014
[2025-08-31 09:14] VITALS: BP 148/80
== END 2025-08-31 09:25 | disposition home or self-care (01) ==
LOC: HO.HMCC 08:21
PROVIDERS: PCP Nurse Practitioner Family; Visit Provider Nurse Practitioner Family
DX: K76.0 Fatty (change of) liver, not elsewhere classified (principal); E78.5 Hyperlipidemia, unspecified; I10 Essential (primary) hypertension; Z82.49 Family history of ischemic heart disease and other diseases of the circulatory system

== ENCOUNTER → 2025-08-31 08:21 | Outpatient (BNVA) | payer MEDICARE, SELFPAY | PROVIDERS: PCP Nurse Practitioner Family; Visit Provider Nurse Practitioner Family | DX: I10 Essential (primary) hypertension (principal); E78.5 Hyperlipidemia, unspecified; K76.0 Fatty (change of) liver, not elsewhere classified; Z82.49 Family history of ischemic heart disease and other diseases of the circulatory system | CPT/HCPCS: 96127; 99212 ==

== ENCOUNTER → 2025-10-10 09:35 | Outpatient (REF) | payer MEDICARE, SELFPAY ==
--- NOTE | 2025-10-10 09:38 | CA_ITS ---
Transthoracic Echocardiogram Patient (Last, First, Middle): Amado Owusu, Gender: Male Date of : 1955 Age: 70 Procedure Date: 10/10/2025 Procedure Type: Transthoracic Echocardiogram Location: OP Height: 177.8 cm Weight: 97.07 kg BSA: 2.15 m2 Heart Rate: 61 bpm BP: 160 / 90 mmHg Business Analyst Project Manager: TO Referring MD: Smith Beard [facility] Ingot Supervisor: Maykel Garcia MD Symptoms: I10 - Essential (primary) hypertension Study Quality: Adequate ECG Rhythm: Sinus Conclusions: - 1. Normal LV ejection fraction of 60-65% with mild asymmetric septal hypertrophy with grade 1 diastolic dysfunction 2. Cardiac valvular Dopplers within normal limits 3. Mildly dilated ascending aorta at 3.7 cm 4. No gross pericardial effusion Findings Left Ventricle Normal left ventricular size, thickness, and systolic function. The visually estimated ejection fraction is between 60-65%. Spectral Doppler is indicative of an impaired relaxation filling pattern. E/E prime ratio is <8, consistent with normal filling pressures. There is mild septal asymmetric hypertrophy. Right Ventricle Normal right ventricular cavity size and systolic function. Atria Both atria are normal in size. There is no evidence of interatrial shunt. Aortic Valve The aortic valve structure and function is likely normal. There is no aortic valve stenosis. There is no aortic valve regurgitation. Mitral Valve Likely normal mitral valve structure and function. There is trace mitral valve regurgitation. There is no mitral valve stenosis. Pulmonic Valve The pulmonic valve is likely normal. There is trace pulmonic valve regurgitation. Tricuspid Valve Normal tricuspid valve structure. Tricuspid regurgitation envelope is inadequate for calculation of right ventricular systolic pressure. Normal right atrial pressure. Great Vessels The pulmonary artery was not well visualized. There is mild dilatation of the ascending aorta measuring 3.70 cm. Venous The inferior vena cava is normal in size and collapses greater than 50% with inspiration. Pericardium/Pleural There is no evidence of pericardial effusion. Prior Study Comparison No prior study available for comparison. Measurements 2D Linear Measurements IVSd: 1.21 0.6-0.9/0.6-1.0 cm LVIDd: 4.80 3.9-5.3/4.2-5.9 cm LVIDd Index: 2.23 2.4-3.2/2.2-3.1 cm/m2 LVIDs: 3.21 2.0-3.6 cm LVPWd: 1.07 0.7-1.1 cm LA Diam: 3.60 2.7-3.8/3.0-4.0 cm LAIDs Index: 1.67 1.5-2.3 cm/m2 LV Mass: 254.08 67-162/88-224 g LV Mass Index: 118.17 43-95/49-115 g/m2 LVOT Diam: 2.30 3.0+(-)1.3 cm 2D Systolic Function EF 4C: 65.10 >55% EF 2C: 58.70 >55% EF BiP: 62.00 >55% Mitral Valve MV Pk E: 0.72 MV PK A: 0.59 MV Decel Time: 139.00 E/A: 1.20 E'Lateral: 5.98 E'Medial: 4.68 E/E' Med: 15.50 E/E' Lat: 12.10 PHT: 41.00 MVA PHT: 5.37 Decel [place]: 5.21 Aortic Valve AoV Pk Law: 1.08 AoV Mn Law: 0.77 AoV VTI: 0.24 AoV Pk Grad: 5.00 Aov Mn Grad: 3.00 SAMARA Cont.VTI: 4.27 LVOT LVOT Pk Law: 1.10 LVOT Mn Law: 0.75 LVOT VTI: 0.25 LVOT Pk Grad: 5.00 LVOT Mn Grad: 2.00 LVOT Diam: 2.30 LVOT Area: 4.15 Diastolic Function MV Pk E: 0.72 MV Pk A: 0.59 E/A: 1.20 E'Medial: 4.68 E/E' Med: 15.50 E' Laterial: 5.98 E/E' Lat: 12.10 Right Ventricle TAPSE (mm): 24.00 TVS' Law: 13.90 Tricuspid Valve RA Press: 3.00 Great Vessels Aorta Sinus of Valsalva: 3.53 2.0-3.5 cm Ao Asc: 3.70 2.1-3.4 cm Updated in Other Vendor System with Status of Final Maykel Garcia MD electronically signed on 10/10/2025 4:16:59 PM with status of Final
--- OUTSIDE RECORDS SUMMARY | 2025-10-10 10:36 | XMS_ITS | Patient Health Record ---
Author Organization [facility] Address [address] [place] [address] Care Team Providers Care Guitar Maker Hand Name Role Phone MARLENE BRUNO Primary Care [...] Problem Status W/U Status Risk Notes Problem Colon cancer screening ([id number]) Colon cancer screening (Z12.11) Active confirmed Problem Pre-procedure evaluation check (759391850) Encounter for other preprocedural examination (Z01.818) Active confirmed Plan Of Treatment Future Test Test Name Order Date COLONOSCOPY 09/10/2017 Insurance Providers Payer Name Payer Address Payer Phone Subscriber Number Group Number Insured Name Patient Relationship to Insured Coverage Start Date Coverage End Date [facility] [address] [place] [phone] [id number] YOVANNY BUENROSTRO Self - patient is the insured Medical (General) History Medical History History ICD Code Denies [place],DM,CVA,Lung disease,renal dise ase seasonal allergies Surgical History Surgery Date(Month/Year) knee replacement mutiple 2013
== END ==
LOC: HO.CARD 09:35
PROVIDERS: PCP Nurse Practitioner Family; Visit Provider Nurse Practitioner Family
DX: I10 Essential (primary) hypertension (principal); Z82.49 Family history of ischemic heart disease and other diseases of the circulatory system
CPT/HCPCS: 93306

== ENCOUNTER → 2025-10-10 09:38 | Outpatient (BNV) | payer MEDICARE, SELFPAY | PROVIDERS: PCP Nurse Practitioner Family; Visit Provider Internal Medicine Cardiovascular Disease | DX: I42.2 Other hypertrophic cardiomyopathy (principal); I77.810 Thoracic aortic ectasia | CPT/HCPCS: 93306 ==

== ENCOUNTER 2025-10-13 14:53 | Outpatient (REF) | payer MEDICARE, SELFPAY ==
[2025-10-13 17:13] LABS: Prostate Specific Antigen 1.58 ng/mL (<0.05-4.0)
== END 2025-10-13 14:54 | disposition home or self-care (01) ==
LOC: HO.HMGCLDS 14:53
PROVIDERS: PCP Nurse Practitioner Family; Visit Provider Urology
DX: C61 Malignant neoplasm of prostate (principal); Z19.1 Hormone sensitive malignancy status; Z12.5 Encounter for screening for malignant neoplasm of prostate
CPT/HCPCS: 36415; 84153

== ENCOUNTER → 2025-10-17 07:42 | Outpatient (REF) | payer MEDICARE, SELFPAY ==
--- NOTE | ~2025-10-17 | NM_ITS ---
EXERCISE MYOCARDIAL PERFUSION STUDY INDICATION: Coronary artery disease TECHNIQUE: The patient was brought in for an exercise perfusion study on 10/17/2025. Patient performed exercise as per Favian protocol and was injected 30 mCi of sestamibi once target heart rate was achieved. Images were obtained using the SPECT gamma camera interlaced with the gating device. Images were obtained in supine position. Resting perfusion study was performed on 10/19/2025. Patient was administered 30 mCi of sestamibi intravenously at rest. Images were then obtained in supine position. Total DLP 79 mGy-cm. Images were processed with the software and compared side to side in short axis, horizontal long axis and vertical long axis views. FINDINGS: Raw aquisition reviewed. The stress perfusion study showed no significant perfusion abnormality. Both uncorrected as well as CT attenuation corrected images were reviewed. The gated study shows normal LV systolic function with calculated LVEF of 68%. LV cavity is normal in size. The gated study shows normal wall thickening and contraction of segments. Resting study shows no significant perfusion abnormality. Gating at rest reveals normal wall motion with ejection fraction at > 70%. The findings are consistent with no clear reversible or fixed perfusion abnormality. NM/NM rashawn perf SPECT rest & str IMPRESSION: 1. Myocardial perfusion imaging study shows normal myocardial perfusion. 2. Gated LVEF is 68% during stress and > 70% during rest. 3. Transient ischemic dilatation not present. EKG component of the test reported separately. Electronically signed by: Magdiel Christensen MD 10/22/2025 12:07 PM [facility]
--- NOTE | 2025-10-17 07:45 | CA_ITS ---
Acquisition Time: 2025-10-17 08:04:43 Total Exercise Time: 00:09:00 Test Indications: HTN Medications: SEE H&P Protocol: JODIE Max HR: 130 BPM 86% of Pred: 151 BPM Max BP: 184/44 mmHG Max Work Load: 10.1 METS Exercise stress test with exercise 9 mins of Jodie Protocol, achieving 86% MPHR, with reports of SOB, no chest pain, with isolated PACs and PVCs, with normotensive response to exercise. Without any EKG changes meeting criteria for ischemia. In recovery, breathing improved to baseline. Nuclear images pending. Test reviewed with Dr. Christensen. Referred By: Smith Beard Electronically Signed By: Enrique Bird
== END ==
LOC: HO.CARD 07:42
PROVIDERS: PCP Nurse Practitioner Family; Visit Provider Nurse Practitioner Family
DX: I25.10 Atherosclerotic heart disease of native coronary artery without angina pectoris (principal); I10 Essential (primary) hypertension; Z82.49 Family history of ischemic heart disease and other diseases of the circulatory system
CPT/HCPCS: 78452; 93017; A9500

== ENCOUNTER → 2025-10-17 07:45 | Outpatient (BNV) | payer MEDICARE, SELFPAY | PROVIDERS: PCP Nurse Practitioner Family | DX: R06.02 Shortness of breath (principal) | CPT/HCPCS: 78452; 93016; 93018 ==

== ENCOUNTER 2025-10-19 09:03 | Outpatient (REF) | payer MEDICARE, SELFPAY ==
[2025-10-19 10:19] LABS: MANUAL DIFF FLAG NO
[2025-10-19 10:29] LABS: Hematocrit 40.6 % (42.0-52.0); Hemoglobin 13.4 g/dl (14.0-18.0); Imm Gran Abs Auto 0.01 X10*3/uL (0.00-0.03); Imm Gran Pct Auto 0.2 % (0.0-0.4); Lymphocytes Absolute Auto 1.2 X10*3/uL (1.2-4.9); Mean Corpuscular HGB Conc 33.0 g/dl (31.0-36.0); Mean Corpuscular Hemoglobin 31.5 pg (27.0-33.0); Mean Corpuscular Volume 95.3 fL (80.0-98.0); NRBC Abs Auto 0.000 X10*3/uL (0.0-0.012); NRBC Pct Auto 0.0 /100WBC (0.0-0.2); Platelet Count 280 X10*3/uL (160-400); Red Blood Count 4.26 X10*6/uL (4.60-5.80); White Blood Count 5.1 X10*3/uL (4.8-10.8)
[2025-10-19 10:39] LABS: Appearance Urine Clear; Glucose Urine UA Negative (Negative); PH 5.5 (5.0-9.0); Specific Gravity - Urine 1.020 (1.005-1.025)
[2025-10-19 10:51] LABS: Alanine Aminotransferase 33 U/L (0-40); Albumin Level 4.3 g/dL (3.5-5.0); Alkaline Phosphatase 85 U/L (39-117); Anion Gap 9 (12-20); Aspartate Amino Transferase 29 U/L (5-37); Blood Urea Nitrogen 21 mg/dL (9-16); Calcium 9.3 mg/dL (8.4-10.2); Carbon Dioxide 29 mmol/L (22-29); Chloride 107 mmol/L (96-108); Cholesterol 147 mg/dL (<200); Estimated Glomerular Filt Rate > 60; HDL Cholesterol 57 mg/dL (>40); Potassium 4.6 mmol/L (3.3-5.1); Sodium 140 mmol/L (135-145); Total Protein 6.9 g/dL (6.5-8.0); Triglycerides 71 mg/dL (<150)
--- OUTSIDE RECORDS SUMMARY | 2025-10-19 11:02 | XMS_ITS | Patient Health Record ---
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 Name Role Phone MARLENE BRUNO Primary Care Provider Colton Alvarez Jr Unavailable [phone] Allergies Allergen (clinical drug ingredient) Drug/Non Drug Allergy documented on EMR Reaction Allergy Type Onset Date Status enviromental (uncoded) Unknown Allergy Active Reason For Referral No Information Medications Medication SIG (Take, Route, Frequency, Duration) Notes Start Date End Date Status Sudafed Active Social History Tobacco Use: Social History Observation Description Date Details (start date - stop date) Never Smoker NA - NA Social History Drugs/Alcohol: Social Info Question Answer Notes Alcohol Screen Did you have a drink containing alcohol in the past year? Yes How often did you have a drink containing alcohol in the past year? Monthly or less (1 point) How many drinks did you have on a typical day when you were drinking in the past year? 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 Problems Problem Type SNOMED Code ICD Code Onset Dates Problem Status W/U Status Risk Notes Problem Colon cancer screening (820232523) Colon cancer screening (Z12.11) Active confirmed Problem Pre-procedure evaluation check (176104708) Encounter for other preprocedural examination (Z01.818) Active confirmed Plan Of Treatment Future Test Test Name Order Date COLONOSCOPY 09/10/2017 Insurance Providers Payer Name Payer Address Payer Phone Subscriber Number Group Number Insured Name Patient Relationship to Insured Coverage Start Date Coverage End Date [facility] [address] [place] [employer] [place] [phone] [id number] YOVANNY BUENROSTRO Self - patient is the insured Medical (General) History Medical History History ICD Code Denies PA,DM,CVA,Lung disease,renal dise ase seasonal allergies Surgical History [facility]
== END 2025-10-19 09:04 | disposition home or self-care (01) ==
LOC: HO.HMGCLDS 09:03
PROVIDERS: PCP Nurse Practitioner Family; Visit Provider Nurse Practitioner Family
DX: E78.5 Hyperlipidemia, unspecified (principal); K76.0 Fatty (change of) liver, not elsewhere classified
CPT/HCPCS: 36415; 80053; 80061; 81003; 84443; 85025

== ENCOUNTER 2025-11-03 09:29 | Outpatient (AMB) | payer MEDICARE, SELFPAY ==
--- NOTE | 2025-11-03 09:54 | A.OFFVIS_ITS ---
Intake Visit Reasons: 4M PVR/Med Review/PSA(SET) Intake Note: Reason for Visit: PVR/Med Review/PSA Urology Meds: Finasteride, Tadalafil Blood Thinners: None Labs: PSA- 1.58 (10/13/2025) Imaging: None Last PVR: None PVR: 5ml Allergies cats Allergy (Unknown, Uncoded 02/28/25 08:28) Unknown HPI Comments Details: Amado is a pleasant male. He is a patient of Dr. Haas. He is seen for the following urologic conditions - prostate cancer Four month follow-up PSA continues to show stability 10/24 1.6 Finasteride to Thursday, Thursday, Thursday Tadalafil for nocturia daily Daughter's wedding in May in [facility] went well Low volume grade group 2 organ confined prostate cancer PSA 02/21 2.0, 06/23 2.0, 10/24 1.6 Prostate cancer - Grade Group 2, low volume, organ confined 09/22 NCCN 2004 PSA at diagnosis 5.5 Free 6% TRUS volume 25gm Cancer biopsy does not meet clear threshold for active surveillance based on core number, total volume of positive core However no core more than 50% and all cores were confined to right side 09/22 Histologic type: Adenocarcinoma, acinar type Holyrood score: 3+4=7 (right base lateral 10% and medial 10%, right mid lateral 50%, right apex medial 10%) 3+3=6 (right mid medial 10%, right apex lateral 40%) Number cores positive: 6 Total number of cores: 12 % of tissue involved: 15% of all tissue examined Periprostatic fat inv.: Not identified Seminal vesicle inv.: Not identified Perineural inv.: Present (in 4 of the 6 cores with tumor) LVI: Not identified Staging - Prolramonita shows low cell cycle score 3.6. Additional clinical information places him at threshold for single modality therapy. Overall polaris scoring places him at unfavorable intermediate. PET-CT - active in prostate. There are 2 discrete FDG avid foci in the prostate. The most intense is in the anterior transitional zone in the apex, showing SUVmax 9.1, slice 270/311. The other is in the right posterior peripheral zone in the apex. There are no other discrete foci of abnormal PSMA activity in the prostate. MRI confined disease - REGION OF INTEREST ONE: Location: Left base and mid anterolateral peripheral zone PI RADS category: 5 Dominant sequence:*Diffusion- weighted imaging [facility] Medical History (Updated 10/11/25 @ 07:29 by GWEN Nguyen) Asymmetric septal hypertrophy First degree AV block Prostate carcinoma Basal cell carcinoma (BCC) Actinic keratitis TIA (transient ischemic attack) Dyslipidemia Surgical History History of knee replacement procedure of right knee Family History Father No problems noted. Mother HTN (hypertension) Brother No problems noted. Sister No problems noted. Daughter No problems noted. Daughter No problems noted. Social History [facility] Alcohol intake: current Alcohol intake frequency: a few times a month Patient Tobacco Use Status: Never used Tobacco e-Cigarette/Vaping Use: Never Used Second Hand Smoke Exposure: No service: No Current occupational status: retired Current occupational exposures/hazards: No Cognitive needs: No Hearing needs: No Vision needs: No Review of Systems Const Denies chills and Denies fever(s) Card Reports no additional complaints and Denies syncope Resp Denies cough GI Denies abdominal pain and Denies heartburn Reports as per HPI and Denies change in libido Neuro Denies syncope Psych Denies change in libido Endo Denies change in libido Physical Exam Const General: cooperative, healthy appearing, comfortable and no acute distress Orientation/consciousness: patient oriented x3 HEENT Face and sinus: Yes normal facial exam Mouth: moist mucous membranes Neck Neck: Yes normal visual inspection, Yes full ROM and Yes trachea midline Chest Chest palpation & inspection: normal inspection of the chest Resp Effort & Inspection: normal respiratory effort, able to speak in complete sentences and no respiratory distress GI Inspection: Yes normal to inspection Back/Spine/Pelvis Cervical Spine: normal cervical lordosis Thoracic/Lumbar Spine: thoracic and lumbar spine normal to inspection Skin General skin exam: no rashes or lesions noted Neuro General: patient oriented x3, gait normal, tone normal and moves all extremities Extrem General: Yes normal to inspection and Yes capillary refill normal Office Procedures Post Void Residual Post Residual Void Post Void Residual (PVR): 5 [id number] Void Residual by ultrasound Assessment & Plan Assessment & Plan (1) Hormone sensitive prostate cancer: Code(s): C61 - Malignant neoplasm of prostate; Z19.1 - Hormone sensitive malignancy status Category: Medical (2) Nocturia: Code(s): R35.1 - Nocturia Category: Medical Plan Six-month follow-up PSA Orders: Orders Prostate Specific Antigen 6 Months C61 - Malignant neoplasm of prostate, Z19.1 - Hormone sensitive malignancy status AMB Post Void Residual by ultrasound 11/03/25 R35.1 - Nocturia Patient Instructions: This note is constructed using voice recognition software. While every effort has been made to ensure accuracy clinical social work therapist errors may have been included. Imaging studies, laboratory and physical exam results were discussed and reviewed in detail. No major barriers to patient understanding were identified. An opportunity to ask questions regarding the treatment plan was provided. All questions were answered. The patient expressed understanding and agreement with the above treatment plan. The patient is aware they should contact our office by phone for worsening of their current condition or the appearance of new urologic symptoms. Compliance is encouraged with any medications and followup testing that is ordered. It is a privilege to participate in the urologic care of your patient. If you have any questions or concerns regarding treatment for the above conditions, or other urologic issues, please do not hesitate to contact me. The office telephone contact is [phone]. Sincerely, Dr Héctor Dominguez MD, [facility] - Urology Compassionate Specialist Care for the Genitourinary System Coding Level of Care Code Est Pt Level 3 (91023) Complex visit Add On G2211 Diagnoses Hormone sensitive prostate cancer C61; Z19.1 Nocturia R35.1 CPT Codes Post Residual Void - PVR CPT Code: 67244-[id number] Void Residual by ultrasound ([id number])
== END 2025-11-03 10:49 | disposition home or self-care (01) ==
LOC: HO.HUSH 09:30
PROVIDERS: PCP Nurse Practitioner Family; Visit Provider Urology
DX: C61 Malignant neoplasm of prostate (principal); Z19.1 Hormone sensitive malignancy status; R35.1 Nocturia
CPT/HCPCS: 99213; G2211

== ENCOUNTER → 2025-11-03 09:29 | Outpatient (BNVA) | payer MEDICARE, SELFPAY | PROVIDERS: PCP Nurse Practitioner Family; Visit Provider Urology | DX: C61 Malignant neoplasm of prostate (principal); Z19.1 Hormone sensitive malignancy status; R35.1 Nocturia | CPT/HCPCS: 51798; 99212 ==